=== PATIENT | female | born 1955 | race American Indian/Alaskan Native ===

== ENCOUNTER 2020-05-26 13:14 | Inpatient (IN) | payer OTHER ==
--- NOTE | 2020-05-26 13:32 | Event Note ---
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 Further treatment and workup at subsequent clinical providers discretion. Patient/guardian urged not to elope from the ED as their condition may be serious if not clinically assessed and managed. Initial orders include: labs, cxr, ekg oxygen saturation 90% no significant wheezing on exam, has good air movement placed on oxygen charge nurse janina notified pt needs room hari
--- NOTE | 2020-05-26 14:33 | XRay Report ---
CHEST PA AND LATERAL VIEWS INDICATION: SOB. COMPARISON: None. FINDINGS: Support devices: None. Heart: Within normal limits. Lungs/Pleura: Opacities over both right and left lower hemithoraces may be due to at least in part to x-ray beam attenuation secondary to patient body habitus. No pleural abnormality. IMPRESSION: 1. Bibasilar opacities may be artifact related to x-ray beam attenuation given patient body habitus. Mild bibasilar atelectasis or lower airways disease could conceivably have this appearance. Signer Name: Rosendo Espinal MD Signed: 05/26/2020 2:29 PM Workstation Name: [id number]
[2020-05-26 14:58] LABS: Basophils % (Auto) 0.3 % (0.0-1.8); Hematocrit 39.6 % (30.3-42.9); Hemoglobin 13.5 gm/dl (10.1-14.3); Lymphocytes # (Auto) 0.7 K/mm3 (1.2-5.4); Lymphocytes % (Auto) 10.9 % (13.4-35.0); Mean Corpuscular HGB Conc 34 % (30-34); Mean Corpuscular Volume 92 fl (79-97); Monocytes # (Auto) 0.5 K/mm3 (0.0-0.8); Monocytes % (Auto) 7.4 % (0.0-7.3); Platelet Count 166 K/mm3 (140-440); Red Blood Count 4.33 M/mm3 (3.65-5.03); Red Cell Distribution Width 13.6 % (13.2-15.2)
[2020-05-26] MEDS ORDERED: dexAMETHasone 4 MG/ML VIAL IV ONE (15:01)
[2020-05-26 15:02] LABS: Alanine Aminotransferase 11 units/L (7-56); Albumin 3.9 g/dL (3.9-5); BUN/Creatinine Ratio 10; Blood Urea Nitrogen 9 mg/dL (7-17); Calcium 8.8 mg/dL (8.4-10.2); Hemolysis Index 6
[2020-05-26] MEDS ORDERED: ACETAMINOPHEN 325 MG TAB PO STA (15:14)
[2020-05-26] MEDS ORDERED: LACTATED RINGERS 1,000 ML IV ONE (15:14)
--- NOTE | 2020-05-26 15:15 | Emergency Department Report ---
ED General Adult HPI - General Chief complaint: Dyspnea/Respdistress Stated complaint: ISSUES BREATHING PUI?: Yes Time Seen by Provider: 05/26/20 13:30 Source: patient, RN notes reviewed Mode of arrival: Wheelchair Limitations: Physical Limitation - History of Present Illness Initial comments: The patient was evaluated in the emergency department for symptoms described in the history of present illness. He/she was evaluated in the context of the global COVID-19 pandemic, which necessitated consideration that the patient aditya ht be at risk for infection with the virus that causes COVID-19. Institutional protocols and algorithms that pertain to the evaluation of patients at risk for COVID-19 are in a state of rapid change based on information released by regulatory bodies including the CDC and federal and state organizations. These policies and algorithms were followed during the patient's care in the emergency department. Please note that these policies, procedures and recommendations changed on a rapid basis. During the history and physical, I have not complete personal protective equipment. Patient is a 65-year-old female. She is not known to myself previously. She has a history of hypertension and obesity. The patient is currently visiting from [facility]. She recently drove here in a truck. She presents to the ER with chest tightness, cough, shortness of breath, malaise and fatigue. Her symptoms have been present for 1 week. She denies loss of taste and smell. Positive muscle aches. No leg pain or leg swelling. No hematemesis or bright red blood per rectum. Does not have a local primary care doctor. Typically resides in [facility]. She reports that every couple years, "I get double pneumonia." She has not been around any Covid positive individuals that she is aware of. Reports allergy/swelling/anaphylaxis to penicillin. Has not received penicillin for a few years. -: Gradual, days(s) Consistency: constant Improves with: rest Worsens with: movement - Related Data Home Medications Medication Instructions Recorded Confirmed Last Taken Lisinopril/Hydrochlorothiazide 1 tab PO QDAY 05/26/20 05/26/20 Unknown [Zestoretic 20-25 mg] hydrOXYzine HCL [Atarax] 25 mg PO QHS 05/26/20 05/26/20 Unknown Allergies Allergy/AdvReac Type Severity Reaction Status Date / Time aspirin Allergy Unknown Verified 05/26/20 15:54 Penicillins Allergy Unknown Verified 05/26/20 15:54 shellfish derived Allergy Unknown Verified 05/26/20 15:54 ED Review of Systems ROS: Stated complaint: ISSUES BREATHING Other details as noted in HPI Constitutional: malaise, weakness. denies: fever Eyes: denies: eye discharge ENT: congestion Respiratory: shortness of breath, SOB with exertion, SOB at rest Cardiovascular: denies: syncope Gastrointestinal: denies: abdominal pain, nausea, vomiting, hematemesis, melena, hematochezia Genitourinary: denies: dysuria Musculoskeletal: myalgia Neurological: weakness Hematological/Lymphatic: denies: easy bleeding ED Past Medical Hx - Past Medical History Hx Hypertension: Yes Hx Asthma: Yes - Surgical History Past Surgical History?: No - Medications Home Medications: Home Medications Medication Instructions Recorded Confirmed Last Taken Type Lisinopril/Hydrochlorothiazide 1 tab PO QDAY 05/26/20 05/26/20 Unknown History [Zestoretic 20-25 mg] hydrOXYzine HCL [Atarax] 25 mg PO QHS 05/26/20 05/26/20 Unknown History ED Physical Exam - General Limitations: Physical Limitation General appearance: alert, anxious, obese - Head Head exam: Present: atraumatic, normocephalic - Eye Eye exam: Present: normal appearance, EOMI. Absent: nystagmus - ENT ENT exam: Present: normal exam, normal orophraynx, mucous membranes moist, normal external ear exam - Neck Neck exam: Present: normal inspection, full ROM. Absent: tenderness, meningismus - Respiratory Respiratory exam: Present: other (Pulmonary auscultation not performed secondary to lack of disposable stethoscope). Absent: stridor - Cardiovascular Cardiovascular Exam: Present: other (Cardiac auscultation not performed secondary to lack of disposable stethoscope) - GI/Abdominal GI/Abdominal exam: Present: soft. Absent: distended, tenderness, guarding, rebound, rigid, pulsatile mass - Extremities Exam Extremities exam: Present: normal inspection, full ROM, pedal edema (1+ edema in the bilateral lower extremities), other (2+ pulses noted in the bilateral upper and lower extremities. There is no palpable cord. negative Homans sign. Muscular compartments are soft. The pelvis is stable.). Absent: calf tenderness - Back Exam Back exam: Present: normal inspection, full ROM. Absent: tenderness, CVA tenderness (R), CVA tenderness (L), paraspinal tenderness, vertebral tenderness - Neurological Exam Neurological exam: Present: alert, other (No facial droop. Tongue midline. Extraocular movements intact bilaterally. Facial sensation intact to light touch in V1, V2, V3 distribution bilaterally. 5 and a 5 strength in 4 extremities. Sensation intact to light touch in 4 extremities.). Absent: motor sensory deficit - Psychiatric Psychiatric exam: Present: anxious - Skin Skin exam: Present: warm, dry, intact, normal color. Absent: rash ED Course Vital Signs 05/26/20 05/26/20 05/26/20 13:26 14:06 14:30 Temperature 99.0 F Pulse Rate 123 H 105 H Respiratory 22 22 Rate Blood Pressure 129/74 140/65 O2 Sat by Pulse 92 97 97 Oximetry 05/26/20 15:46 Temperature Pulse Rate 109 H Respiratory 25 H Rate Blood Pressure 146/77 O2 Sat by Pulse 97 Oximetry - Reevaluation(s) Reevaluation #1: 05/26/20 19:00 CT scan of the chest is negative for pulmonary embolism. Multi lobar pneumonia is suspected, suspicious for Covid. ED Medical Decision Making - Lab Data Result diagrams: 05/26/20 14:13 05/26/20 15:17 Vital Signs 05/26/20 13:26 Temperature 99.0 F Pulse Rate 123 H Respiratory 22 Rate Blood Pressure 129/74 O2 Sat by Pulse 92 Oximetry Lab Results 05/26/20 05/26/20 05/26/20 Range/Units 14:13 14:13 14:13 WBC 6.3 (4.5-11.0) K/mm3 RBC 4.33 (3.65-5.03) M/mm3 Hgb 13.5 (10.1-14.3) gm/dl Hct 39.6 (30.3-42.9) % MCV 92 (79-97) fl MCH 31 (28-32) pg MCHC 34 (30-34) % RDW 13.6 (13.2-15.2) % Plt Count 166 (140-440) K/mm3 Lymph % (Auto) 10.9 L (13.4-35.0) % [place] % (Auto) 7.4 H (0.0-7.3) % Eos % (Auto) 0.0 (0.0-4.3) % Baso % (Auto) 0.3 (0.0-1.8) % Lymph # (Auto) 0.7 L (1.2-5.4) K/mm3 [place] # (Auto) 0.5 (0.0-0.8) K/mm3 Eos # (Auto) 0.0 (0.0-0.4) K/mm3 Baso # (Auto) 0.0 (0.0-0.1) K/mm3 Seg Neutrophils % 81.4 H (40.0-70.0) % Seg Neutrophils # 5.2 (1.8-7.7) K/mm3 D-Dimer 319.79 H (0-234) ng/mlDDU Sodium 141 (137-145) mmol/L Potassium 4.0 (3.6-5.0) mmol/L Chloride 99.6 (98-107) mmol/L Carbon Dioxide 33 H (22-30) mmol/L Anion Gap 12 mmol/L BUN 9 (7-17) mg/dL Creatinine 0.9 (0.6-1.2) mg/dL Estimated GFR > 60 ml/min BUN/Creatinine Ratio 10 % Glucose 126 H (65-100) mg/dL Calcium 8.8 (8.4-10.2) mg/dL Total Bilirubin 0.50 (0.1-1.2) mg/dL AST 26 (5-40) units/L ALT 11 (7-56) units/L Alkaline Phosphatase 63 (35-129) units/L Troponin T < 0.010 (0.00-0.029) ng/mL NT-Pro-B Natriuret Pep 53.54 (0-900) pg/mL Total Protein 7.3 (6.3-8.2) g/dL Albumin 3.9 (3.9-5) g/dL Albumin/Globulin Ratio 1.1 % - EKG Data -: EKG Interpreted by Il EKG shows normal: sinus rhythm Rate: tachycardia - EKG Data When compared to previous EKG there are: previous EKG unavailable 05/26/20 15:51 EKG interpreted at 15: 30 Sinus rhythm, tachycardia, 109 bpm. Left axis deviation, left anterior fascicular block, QTC is prolonged. Borderline left ventricular hypertrophy. This is an abnormal EKG. This is not a STEMI. There is no prior for comparison. - Radiology Data Radiology results: report reviewed, image reviewed CHEST PA AND LATERAL VIEWS INDICATION: SOB. COMPARISON: None. FINDINGS: Support devices: None. Heart: Within normal limits. Lungs/Pleura: Opacities over both right and left lower hemithoraces may be due to at least in part to x-ray beam attenuation secondary to patient body habitus. No pleural abnormality. IMPRESSION: 1. Bibasilar opacities may be artifact related to x-ray beam attenuation given patient body habitus. Mild bibasilar atelectasis or lower airways disease could conceivably have this appearance. Signer Name: Rosendo Espinal MD Signed: 05/26/2020 1:29 PM - Medical Decision Making Differential diagnosis, including but not limited to: Pneumonia, COVID-19, pulmonary embolism Assessment and plan: 65-year-old female, obese, with hypoxia, tachycardia, left axis deviation, left anterior fascicular block, recently had a 4-day trip from [place] to here, presenting with probable COVID-19. Patient require supplemental oxygen, steroids, and empiric antibiotic therapy. X-ray of the chest reviewed and appreciated. Patient counseled on recommendations for hospitalization and admission. At this point in time, patient is amenable to admission and hospitalization. She has provided verbal consent to have her medical information discussed with her significant other. Given recent trip from [place], we will obtain CT scan of the chest. We will place courtesy consultation for infectious disease, and defer to inpatient team to follow this up. We will continue supplemental oxygen, initiate steroids, empiric Levaquin, given patient's intolerance/allergy to penicillins. Dr Marty Oscar to admit to [facility] Critical Care Time: Yes Critical care time in (mins) excluding proc time.: 35 Critical care attestation.: If time is entered above; I have spent that time in minutes in the direct care of this critically ill patient, excluding procedure time. ED Disposition Clinical Impression: Acute and chronic respiratory failure with hypoxia, Suspected 2019 novel coronavirus infection, Obesity Disposition: OP ADMIT IP TO THIS HOSP Is pt being admited?: Yes Does the pt Need Aspirin: No Condition: Serious
[2020-05-26 16:10] LABS: C-Reactive Protein 17.3 mg/dL (0.00-1.30)
--- NOTE | 2020-05-26 18:09 | Cat Scan Report ---
CTA CHEST WITH IV CONTRAST INDICATION: acute dyspnea. TECHNIQUE: Axial CT images were obtained through the chest after injection of 100 cc Omnipaque 350 IV contrast. 3 plane MIP reconstructions were produced. All CT scans at this location are performed using CT dose reduction for ALARA by means of automated exposure control. COMPARISON: None available. FINDINGS: Pulmonary Arteries: No pulmonary emboli. Lungs: There are patchy areas of groundglass opacity in both lungs. Trachea and Bronchi: No significant abnormality. Heart and Pericardium: No significant abnormality. Vasculature: No significant abnormality. Lymphatics: No lymphadenopathy. Additional Findings: None. Upper Abdomen: No acute findings. Skeletal Structures: No acute findings or aggressive bone lesions. IMPRESSION: 1. No CT evidence for pulmonary embolism. 2. Patchy peripheral groundglass opacities likely reflecting multifocal pneumonia. Viral pneumonia wo uld be a possibility for this appearance. Signer Name: Ortega Burns MD Signed: 05/26/2020 6:04 PM Workstation Name: [id number]
[2020-05-27] MEDS ORDERED: METOCLOPRAMIDE 10 MG/2 ML INJ IV PRN (00:49)
[2020-05-27] MEDS ORDERED: ONDANSETRON 4 MG/2 ML INJ IV PRN (00:49)
--- NOTE | 2020-05-27 00:54 | History and Physical Report ---
History of Present Illness Date of examination: 05/26/20 Date of admission: 05/26/20 15:54 Chief complaint: Cough and SOB for one week History of present illness: Patient is a 65-year-old female with history of hypertension and obesity currently visiting from [facility]. She recently drove here in a truck. She presents to the ER with chest tightness, cough, shortness of breath, malaise and fatigue. Her symptoms have been present for 1 week. She denies loss of taste and smell. Positive muscle aches. No leg pain or leg swelling. No hematemesis or bright red blood per rectum. Does not have a local primary care doctor. Typically resides in [facility]. She reports that every couple years, "I get double pneumonia." She has not been around any Covid positive individuals that she is aware of. - Past Medical History --Hypertension: Yes --Asthma: Yes - Surgical History Past Surgical History?: No --Family History Htn Social History No smoking/etoh - Medications Home Medications: Home Medications Medication Instructions Recorded Confirmed Last Taken Type Lisinopril/Hydrochlorothiazide 1 tab PO QDAY 05/26/20 05/26/20 Unknown History [Zestoretic 20-25 mg] hydrOXYzine HCL [Atarax] 25 mg PO QHS 05/26/20 05/26/20 Unknown History Review of Systems ROS: Stated complaint: ISSUES BREATHING Other details as noted in HPI Constitutional: malaise, weakness. denies: fever Eyes: denies: eye discharge ENT: congestion Respiratory: shortness of breath, SOB with exertion, SOB at rest Cardiovascular: denies: syncope Gastrointestinal: denies: abdominal pain, nausea, vomiting, hematemesis, melena, hematochezia Genitourinary: denies: dysuria Musculoskeletal: myalgia Neurological: weakness Hematological/Lymphatic: denies: easy bleeding Medications and Allergies Allergies Allergy/AdvReac Type Severity Reaction Status Date / Time aspirin Allergy Unknown Verified 05/26/20 15:54 Penicillins Allergy Unknown Verified 05/26/20 15:54 shellfish derived Allergy Unknown Verified 05/26/20 15:54 Home Medications Medication Instructions Recorded Confirmed Last Taken Type Lisinopril/Hydrochlorothiazide 1 tab PO QDAY 05/26/20 05/26/20 Unknown History [Zestoretic 20-25 mg] hydrOXYzine HCL [Atarax] 25 mg PO QHS 05/26/20 05/26/20 Unknown History Exam - Constitutional Vitals: Temp Pulse Resp BP Pulse Ox 97.5 F L 93 H 20 125/70 94 05/26/20 22:53 05/26/20 22:53 05/26/20 22:53 05/26/20 22:53 05/26/20 22:53 General appearance: Present: mild distress, well-nourished - EENT Eyes: Present: PERRL ENT: hearing intact, clear oral mucosa - Neck Neck: Present: supple, normal ROM - Respiratory Respiratory effort: normal Respiratory: bilateral: CTA, rhonchi (Scattered rhonchi) - Cardiovascular Heart rate: 78 Rhythm: regular Heart Sounds: Present: S1 & S2. Absent: rub, click - Extremities Extremities: no ischemia, pulses intact, pulses symmetrical, No edema Peripheral Pulses: within normal limits - Abdominal General gastrointestinal: Present: soft, non-tender, non-distended, normal bowel sounds Female genitourinary: Present: normal - Integumentary Integumentary: Present: clear, warm, dry - Musculoskeletal Musculoskeletal: gait normal, strength equal bilaterally - Psychiatric Psychiatric: appropriate mood/affect, intact judgment & insight - Neurologic Neurologic: CNII-XII intact, moves all extremities - Allied Health Allied health notes reviewed: nursing, case management HEART Score - HEART Score History: Slightly suspicious Age: 45-65 Risk factors: 1-2 risk factors Troponin: Troponin T < 0.010 ng/mL (0.00-0.029) 05/26/20 14:13 Troponin: < normal limit - Critical Actions Critical Actions: 0-3 pts:0.9-1.7%risk of adverse cardiac event.Candidate for discharge Results - Labs CBC & Chem 7: 05/27/20 03:45 05/27/20 03:45 Labs: Laboratory Last Values WBC 6.3 K/mm3 (4.5-11.0) 05/26/20 14:13 RBC 4.33 M/mm3 (3.65-5.03) 05/26/20 14:13 Hgb 13.5 gm/dl (10.1-14.3) 05/26/20 14:13 Hct 39.6 % (30.3-42.9) 05/26/20 14:13 MCV 92 fl (79-97) 05/26/20 14:13 MCH 31 pg (28-32) 05/26/20 14:13 MCHC 34 % (30-34) 05/26/20 14:13 RDW 13.6 % (13.2-15.2) 05/26/20 14:13 Plt Count 166 K/mm3 (140-440) 05/26/20 14:13 Lymph % (Auto) 10.9 % (13.4-35.0) L 05/26/20 14:13 [place] % (Auto) 7.4 % (0.0-7.3) H 05/26/20 14:13 Eos % (Auto) 0.0 % (0.0-4.3) 05/26/20 14:13 Baso % (Auto) 0.3 % (0.0-1.8) 05/26/20 14:13 Lymph # (Auto) 0.7 K/mm3 (1.2-5.4) L 05/26/20 14:13 [place] # (Auto) 0.5 K/mm3 (0.0-0.8) 05/26/20 14:13 Eos # (Auto) 0.0 K/mm3 (0.0-0.4) 05/26/20 14:13 Baso # (Auto) 0.0 K/mm3 (0.0-0.1) 05/26/20 14:13 Seg Neutrophils % 81.4 % (40.0-70.0) H 05/26/20 14:13 Seg Neutrophils # 5.2 K/mm3 (1.8-7.7) 05/26/20 14:13 D-Dimer 319.79 ng/mlDDU (0-234) H 05/26/20 14:13 Sodium 141 mmol/L (137-145) 05/26/20 14:13 Potassium 4.0 mmol/L (3.6-5.0) 05/26/20 14:13 Chloride 99.6 mmol/L (98-107) 05/26/20 14:13 Carbon Dioxide 33 mmol/L (22-30) H 05/26/20 14:13 Anion Gap 12 mmol/L 05/26/20 14:13 BUN 9 mg/dL (7-17) 05/26/20 14:13 Creatinine 0.9 mg/dL (0.6-1.2) 05/26/20 14:13 Estimated GFR > 60 ml/min 05/26/20 14:13 BUN/Creatinine Ratio 10 % 05/26/20 14:13 Glucose 122 mg/dL (65-100) H 05/26/20 15:17 Lactic Acid 2.80 mmol/L (0.7-2.0) H* 05/26/20 23:46 Calcium 8.8 mg/dL (8.4-10.2) 05/26/20 14:13 Ferritin 709.6 ng/mL (10.0-200.0) H 05/26/20 15:17 Total Bilirubin 0.50 mg/dL (0.1-1.2) 05/26/20 14:13 AST 26 units/L (5-40) 05/26/20 14:13 ALT 11 units/L (7-56) 05/26/20 14:13 Alkaline Phosphatase 63 units/L (35-129) 05/26/20 14:13 Lactate Dehydrogenase 502 units/L (91-180) H 05/26/20 15:17 Troponin T < 0.010 ng/mL (0.00-0.029) 05/26/20 14:13 C-Reactive Protein 17.30 mg/dL (0.00-1.30) H 05/26/20 15:17 NT-Pro-B Natriuret Pep 53.54 pg/mL (0-900) 05/26/20 14:13 Total Protein 7.3 g/dL (6.3-8.2) 05/26/20 14:13 Albumin 3.9 g/dL (3.9-5) 05/26/20 14:13 Albumin/Globulin Ratio 1.1 % 05/26/20 14:13 Microbiology: Microbiology 05/26/20 15:20 Peripheral/Venous Blood Culture - Preliminary Culture in Progress 05/26/20 15:17 Peripheral/Venous Blood Culture - Preliminary Culture in Progress - Imaging and Cardiology EKG: report reviewed (Sinus tach 109/min no acute changes) Chest x-ray: report reviewed (Bilateral opacities) Assessment and Plan Advance Directives: Yes (Full code) VTE prophylaxis?: Chemical Plan of care discussed with patient/family: Yes - Patient Problems (1) Sepsis Current Visit: Yes Status: Acute Plan to address problem: Elevated Lactic acid tachypnea and Tachycardia (2) Acute and chronic respiratory failure with hypoxia Current Visit: Yes Status: Acute Plan to address problem: Hypoxic initially Needs O2 supplementation (3) Bilateral pneumonia Current Visit: Yes Status: Acute Plan to address problem: Treat as CAP for now IV Ceftriaxone and IV Zithromax initiated IV Decadron for possible covid (4) Suspected 2019 novel coronavirus infection Current Visit: Yes Status: Acute Plan to address problem: Mederos pcr requested (5) Obesity Current Visit: Yes Status: Chronic Qualifiers: Body mass index: BMI 45.0-49.9 Plan to address problem: Needs f//u with bariatric surgery and Diet and exercise Primary team to senior counsel (6) DVT prophylaxis Current Visit: Yes Status: Acute Plan to address problem: On Lovenox and GI prophylaxis
[2020-05-27] MEDS ORDERED: dexAMETHasone 4 MG/ML VIAL IV SCH (01:00)
[2020-05-27] MEDS ORDERED: AZITHROMYCIN/NS 500 MG/250 ML 500 MG/250 ML BAG IV SCH ×2 (01:00→22:00)
[2020-05-27 04:14] LABS: Basophils % (Auto) 0.2 % (0.0-1.8); Eosinophils % (Auto) 0.3 % (0.0-4.3); Hematocrit 39.6 % (30.3-42.9); Hemoglobin 13.8 gm/dl (10.1-14.3); Lymphocytes # (Auto) 0.5 K/mm3 (1.2-5.4); Lymphocytes % (Auto) 8.2 % (13.4-35.0); Mean Corpuscular HGB Conc 35 % (30-34); Mean Corpuscular Volume 90 fl (79-97); Monocytes # (Auto) 0.2 K/mm3 (0.0-0.8); Monocytes % (Auto) 3.2 % (0.0-7.3); Red Blood Count 4.38 M/mm3 (3.65-5.03); Red Cell Distribution Width 13.5 % (13.2-15.2)
[2020-05-27 04:19] LABS: Platelet Count 192 K/mm3 (140-440)
[2020-05-27] MEDS: SODIUM CHLORIDE 0.9% 1000 ML 1,000 ML IV SCH (05:04)
[2020-05-27 05:38] LABS: Alanine Aminotransferase 12 units/L (7-56); Albumin 4.3 g/dL (3.9-5); BUN/Creatinine Ratio 11; Blood Urea Nitrogen 9 mg/dL (7-17); Calcium 8.6 mg/dL (8.4-10.2); Hemolysis Index 50
--- NOTE | 2020-05-27 08:42 | Progress Note ---
Assessment and Plan Assessment and plan: (1) Sepsis Current Visit: Yes Status: Acute Plan to address problem: Elevated Lactic acid tachypnea and Tachycardia (2) Acute and chronic respiratory failure with hypoxia Current Visit: Yes Status: Acute Plan to address problem: Hypoxic initially Needs O2 supplementation (3) Bilateral pneumonia Current Visit: Yes Status: Acute Plan to address problem: Treat as CAP for now IV Ceftriaxone and IV Zithromax initiated IV Decadron for possible covid (4) Suspected 2019 novel coronavirus infection Current Visit: Yes Status: Acute Plan to address problem: Mederos pcr requested (5) Obesity Current Visit: Yes Status: Chronic Qualifiers: Body mass index: BMI 45.0-49.9 Plan to address problem: Needs f//u with bariatric surgery and Diet and exercise Primary team to mortgage counselor (6) DVT prophylaxis Current Visit: Yes Status: Acute Plan to address problem: On Lovenox and GI prophylaxis 05/27/2020 -CTA chest significant for bilateral groundglass opacity suspected of Covid pneumonia. Negative for PE. Patient was started empirically on antibiotics. ID consulted. Started on Decadron. Covid test is pending. Patient was hypoxic initially. -Patient is on 4 L of oxygen. History Interval history: Patient was seen and evaluated this morning Patient was on 4 L of oxygen Complaints of shortness of breath Hospitalist Physical - Physical exam Narrative exam: Not in cardiopulmonary distress. The patient is obese Vital signs as documented. Head exam is unremarkable. No scleral icterus . Neck is without jugular venous distension, thyromegaly, or carotid bruits. Lungs are clear to auscultation. Cardiac exam reveals regular rate and Rhythm. Abdominal exam reveals normal bowel sounds, nontender, no organomegaly. Extremities are nonedematous and both femoral and pedal pulses are normal. 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 No focal weakness. - Constitutional Vitals: Temp Pulse Resp BP Pulse Ox 98.6 F 72 22 120/73 89 05/27/20 05:30 05/27/20 05:30 05/27/20 05:30 05/27/20 05:30 05/27/20 05:30 General appearance: Present: mild distress, well-nourished HEART Score - HEART Score Age: 45-65 Risk factors: 1-2 risk factors Troponin: Troponin T < 0.010 ng/mL (0.00-0.029) 05/26/20 14:13 Troponin: < normal limit - Critical Actions Critical Actions: 0-3 pts:0.9-1.7%risk of adverse cardiac event.Candidate for discharge Results - Labs CBC & Chem 7: 05/27/20 03:45 05/27/20 03:45 Labs: Laboratory Last Values WBC 6.5 K/mm3 (4.5-11.0) 05/27/20 03:45 RBC 4.38 M/mm3 (3.65-5.03) 05/27/20 03:45 Hgb 13.8 gm/dl (10.1-14.3) 05/27/20 03:45 Hct 39.6 % (30.3-42.9) 05/27/20 03:45 MCV 90 fl (79-97) 05/27/20 03:45 MCH 31 pg (28-32) 05/27/20 03:45 MCHC 35 % (30-34) H 05/27/20 03:45 RDW 13.5 % (13.2-15.2) 05/27/20 03:45 Plt Count 192 K/mm3 (140-440) 05/27/20 03:45 Lymph % (Auto) 8.2 % (13.4-35.0) L 05/27/20 03:45 [place] % (Auto) 3.2 % (0.0-7.3) 05/27/20 03:45 Eos % (Auto) 0.3 % (0.0-4.3) 05/27/20 03:45 Baso % (Auto) 0.2 % (0.0-1.8) 05/27/20 03:45 Lymph # (Auto) 0.5 K/mm3 (1.2-5.4) L 05/27/20 03:45 [place] # (Auto) 0.2 K/mm3 (0.0-0.8) 05/27/20 03:45 Eos # (Auto) 0.0 K/mm3 (0.0-0.4) 05/27/20 03:45 Baso # (Auto) 0.0 K/mm3 (0.0-0.1) 05/27/20 03:45 Seg Neutrophils % 88.1 % (40.0-70.0) H 05/27/20 03:45 Seg Neutrophils # 5.7 K/mm3 (1.8-7.7) 05/27/20 03:45 D-Dimer 319.79 ng/mlDDU (0-234) H 05/26/20 14:13 Sodium 143 mmol/L (137-145) 05/27/20 03:45 Potassium 4.8 mmol/L (3.6-5.0) 05/27/20 03:45 Chloride 100.5 mmol/L (98-107) 05/27/20 03:45 Carbon Dioxide 27 mmol/L (22-30) 05/27/20 03:45 Anion Gap 20 mmol/L 05/27/20 03:45 BUN 9 mg/dL (7-17) 05/27/20 03:45 Creatinine 0.8 mg/dL (0.6-1.2) 05/27/20 03:45 Estimated GFR > 60 ml/min 05/27/20 03:45 BUN/Creatinine Ratio 11 % 05/27/20 03:45 Glucose 134 mg/dL (65-100) H 05/27/20 03:45 Hemoglobin A1c 5.5 % (4-6) 05/27/20 03:45 Lactic Acid 2.80 mmol/L (0.7-2.0) H* 05/26/20 23:46 Calcium 8.6 mg/dL (8.4-10.2) 05/27/20 03:45 Ferritin 709.6 ng/mL (10.0-200.0) H 05/26/20 15:17 Total Bilirubin 0.50 mg/dL (0.1-1.2) 05/27/20 03:45 AST 29 units/L (5-40) 05/27/20 03:45 ALT 12 units/L (7-56) 05/27/20 03:45 Alkaline Phosphatase 72 units/L (35-129) 05/27/20 03:45 Lactate Dehydrogenase 502 units/L (91-180) H 05/26/20 15:17 Troponin T < 0.010 ng/mL (0.00-0.029) 05/26/20 14:13 C-Reactive Protein 17.30 mg/dL (0.00-1.30) H 05/26/20 15:17 NT-Pro-B Natriuret Pep 53.54 pg/mL (0-900) 05/26/20 14:13 Total Protein 6.9 g/dL (6.3-8.2) 05/27/20 03:45 Albumin 4.3 g/dL (3.9-5) 05/27/20 03:45 Albumin/Globulin Ratio 1.7 % 05/27/20 03:45 Microbiology: Microbiology 05/26/20 15:20 Peripheral/Venous Blood Culture - Preliminary Culture in Progress 05/26/20 15:17 Peripheral/Venous Blood Culture - Preliminary Culture in Progress Harris/IV: Voiding Method Toilet Active Medications - Current Medications Current Medications: Generic Name Dose Route Start Last Admin Trade Name Freq PRN Reason Stop Dose Admin Acetaminophen 650 mg 05/27/20 00:49 Acetaminophen 325 Mg Tab PO Q4H PRN Pain MILD(1-3)/Fever >100.5/MAHARAJ Dexamethasone 8 mg 05/27/20 01:00 05/27/20 01:11 Dexamethasone 4 Mg/Ml Vial IV 8 mg Q24HR LA Administration Enoxaparin Sodium 40 mg 05/27/20 22:00 Enoxaparin 40 Mg/0.4 Ml Inj SUB-Q QDAY@2200 LA Protocol Famotidine 20 mg 05/27/20 10:00 Famotidine 20 Mg Tab PO BID LA Hydrochlorothiazide 25 mg 05/27/20 10:00 Hydrochlorothiazide 25 Mg Tab PO QDAY LA Hydroxyzine HCl 25 mg 05/27/20 22:00 Hydroxyzine Hcl 25 Mg Tab PO QHS LA Ceftriaxone Sodium 2 gm in 100 mls @ 200 mls/hr 05/27/20 10:00 Rocephin/Ns 2 Gm/100 Ml IV Q24HR LA Protocol Azithromycin 500 mg in 250 mls @ 250 mls/hr 05/27/20 10:00 Zithromax/Ns IV Q24HR LA Sodium Chloride 1,000 mls @ 125 mls/hr 05/27/20 05:00 05/27/20 05:04 Nacl 0.9% 1000 Ml IV 125 mls/hr DIRECT LA Administration Lisinopril 20 mg 05/27/20 10:00 Lisinopril 20 Mg Tab PO QDAY LA Metoclopramide HCl 10 mg 05/27/20 00:49 Metoclopramide 10 Mg/2 Ml Inj IV Q6H PRN Nausea And Vomiting Morphine Sulfate 2 mg 05/27/20 00:49 Morphine 2 Mg/1 Ml Inj IV Q4H PRN Pain, Moderate (4-6) Ondansetron HCl 4 mg 05/27/20 00:49 Ondansetron 4 Mg/2 Ml Inj IV Q8H PRN Nausea And Vomiting Oxycodone/Acetaminophen 1 tab 05/27/20 00:49 Oxycodone /Acetaminophen 5-325mg Tab PO Q6H PRN Pain, Moderate (4-6) Sodium Chloride 10 ml 05/27/20 10:00 Sodium Chloride 0.9% 10 Ml Flush Syringe IV BID LA Sodium Chloride 10 ml 05/27/20 00:49 Sodium Chloride 0.9% 10 Ml Flush Syringe IV PRN PRN LINE FLUSH
[2020-05-27] MEDS ORDERED: NON-FORMULARY EACH (Lisinopril/Hydrochlorothiazide [Zestoretic 20-25 Mg] 1 EACH Tablet) PO SCH (10:00)
[2020-05-27] MEDS: hydroCHLOROthiazide 25 MG TAB PO SCH (10:19)
[2020-05-27] MEDS: LISINOPRIL 20 MG TAB PO SCH (10:19)
[2020-05-27] MEDS: FAMOTIDINE 20 MG TAB PO SCH ×2 (11:20→22:20)
[2020-05-27] MEDS: AZITHROMYCIN/NS 500 MG/250 ML 500 MG/250 ML BAG IV SCH (11:22)
[2020-05-27] MEDS: dexAMETHasone 4 MG/ML VIAL IV SCH (12:07)
--- NOTE | 2020-05-27 12:09 | Electrocardiograph Report ---
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
[2020-05-27] MEDS: cefTRIAXone/NS 2 GM/100 ML 2 GM/100 ML BAG IV SCH (12:23)
[2020-05-27] MEDS: MORPHINE 2 MG/1 ML INJ IV PRN ×2 (15:32→20:54)
[2020-05-27] MEDS: ALBUTEROL 2.5 MG/3 ML NEBU IH PRN (15:49)
[2020-05-27] MEDS ORDERED: REMDESIVIR 100 MG VIAL IV ONE (16:30)
[2020-05-27] MEDS ORDERED: REMDESIVIR 200 MG in SODIUM CHLORIDE 0.9% 250ML 250 ML IV ONE (16:30)
--- NOTE | 2020-05-27 17:40 | Consultation ---
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 Patient has not received a Covid vaccine. 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 She has not received influenza or pneumonia vaccine. On arrival, temperature 99, HR 123, RR 22, O2 sat 92, BP 129/74. O2 sat dropped to 89%. Currently on 4 L. Initial WBC 6.3. Hemoglobin 15.5. Platelets 166. D-dimer 319. CRP 17. LDH 502. Procalcitonin 0.2. Blood culture 05/26/2020 growing gram variable rods 1 out of 4. Chest x-ray with bibasilar opacities. CT chest shows no PE, patchy groundglass opacities. Review of Systems: positive in bold print General: fever, chills, malaise Cutaneous: rash, pruritus Head: headaches or injury Eyes: changes in vision, eye pain, double vision Ears: ear pain, ear discharge, ringing or hearing loss Nose: nose bleeding, stuffiness Mouth & throat: bleeding gums, horseness, no dental problems, or swollen glands Neck: no pain, node enlargement/lumps, tyroid enlargement or tenderness Respiratory: SOB, cough, RIBEIRO, wheezing, sputum, hemoptysis, pleuritic chest pain Cardiovascular: chest pain, leg edema, cyanosis, RIBEIRO, orthopnea Musculoskeletal: edema, deformities, pain Gastrointestinal: nausea, vomiting, hematemesis, diarrhea, constipation, melena, bright red blood in stools, fecal incontinence, jaundice Genitourinary/Reproductive: frequent urination, dysuria, hematuria, incontinence Neurogical: seizures, headaches, weakness, paresthesias, loss of speech or vision; memory loss, vertigo, tremors, numbness Psychiatric: stable mood; excessive anxiety, sadness or moodiness Medications and Allergies Allergies Allergy/AdvReac Type Severity Reaction Status Date / Time aspirin Allergy Unknown Verified 05/26/20 15:54 Penicillins Allergy Unknown Verified 05/26/20 15:54 shellfish derived Allergy Unknown Verified 05/26/20 15:54 Home Medications Medication Instructions Recorded Confirmed Last Taken Type Lisinopril/Hydrochlorothiazide 1 tab PO QDAY 05/26/20 05/26/20 Unknown History [Zestoretic 20-25 mg] hydrOXYzine HCL [Atarax] 25 mg PO QHS 05/26/20 05/26/20 Unknown History ALBUTEROL NEB's [Proventil 0.083% 2.5 mg IH Q4HR PRN 05/27/20 05/27/20 Unknown History NEBS] Active Meds: Active Medications Acetaminophen (Acetaminophen 325 Mg Tab) 650 mg PO Q4H PRN PRN Reason: Pain MILD(1-3)/Fever >100.5/MAHARAJ Albuterol (Albuterol 2.5 Mg/3 Ml Nebu) 2.5 mg IH Q4HRT PRN PRN Reason: Shortness Of Breath Last Admin: 05/27/20 15:49 Dose: 2.5 mg Documented by: Dexamethasone (Dexamethasone 4 Mg/Ml Vial) 8 mg IV Q24HR [facility] Stop: 06/04/20 10:01 Last Admin: 05/27/20 12:07 Dose: 8 mg Documented by: Enoxaparin Sodium (Enoxaparin 40 Mg/0.4 Ml Inj) 40 mg SUB-Q QDAY@2200 [facility]; Protocol Famotidine (Famotidine 20 Mg Tab) 20 mg PO BID [facility] Last Admin: 05/27/20 11:20 Dose: 20 mg Documented by: Hydrochlorothiazide (Hydrochlorothiazide 25 Mg Tab) 25 mg PO QDAY [facility] Last Admin: 05/27/20 10:19 Dose: 25 mg Documented by: Hydroxyzine HCl (Hydroxyzine Hcl 25 Mg Tab) 25 mg PO QHS [facility] Ceftriaxone Sodium (Rocephin/Ns 2 Gm/100 Ml) 2 gm in 100 mls @ 200 mls/hr IV Q24HR [facility]; Protocol Last Admin: 05/27/20 12:23 Dose: 200 mls/hr Documented by: Sodium Chloride (Nacl 0.9% 1000 Ml) 1,000 mls @ 125 mls/hr IV DIRECT LA Last Admin: 05/27/20 05:04 Dose: 125 mls/hr Documented by: Azithromycin (Zithromax/Ns) 500 mg in 250 mls @ 250 mls/hr IV Q24HR [facility] Stop: 05/31/20 10:59 Last Admin: 05/27/20 11:22 Dose: 250 mls/hr Documented by: REMDESIVIR 100 mg/ Sodium (Chloride) 250 mls @ 500 mls/hr IV Q24HR@2100 [facility] Stop: 05/31/20 21:29 Lisinopril (Lisinopril 20 Mg Tab) 20 mg PO QDAY [facility] Last Admin: 05/27/20 10:19 Dose: 20 mg Documented by: Metoclopramide HCl (Metoclopramide 10 Mg/2 Ml Inj) 10 mg IV Q6H PRN PRN Reason: Nausea And Vomiting Morphine Sulfate (Morphine 2 Mg/1 Ml Inj) 2 mg IV Q4H PRN PRN Reason: Pain, Moderate (4-6) Last Admin: 05/27/20 15:32 Dose: 2 mg Documented by: Ondansetron HCl (Ondansetron 4 Mg/2 Ml Inj) 4 mg IV Q8H PRN PRN Reason: Nausea And Vomiting Last Admin: 05/27/20 15:32 Dose: 4 mg Documented by: Oxycodone/Acetaminophen (Oxycodone /Acetaminophen 5-325mg Tab) 1 tab PO Q6H PRN PRN Reason: Pain, Moderate (4-6) Sodium Chloride (Sodium Chloride 0.9% 10 Ml Flush Syringe) 10 ml IV BID [facility] Last Admin: 05/27/20 10:21 Dose: 10 ml Documented by: Sodium Chloride (Sodium Chloride 0.9% 10 Ml Flush Syringe) 10 ml IV PRN PRN PRN Reason: LINE FLUSH Sodium Chloride (Sodium Chloride 0.9% 50 Ml Ivpb) 50 ml IV Q24HR@2100 [facility] Stop: 05/30/20 21:01 Physical Examination - Physical Exam Narrative exam: General appearance: Alert in NAD pleasant Eyes: anicteric sclerae, moist conjunctivae; no lid-lag; PERRLA HENT: Normocephalic, Atraumatic; normal external ears, nares open, oropharynx clear Neck: supple, tracheal midline, no JVD Lungs: francisco crackles/wheezings CV: RRR no murmur Abdomen: Soft, non-tender; no masses or hepatosplenomegaly Extremities: no edema, no cyanosis Skin: No rash. Psych: no agitated Neuro: alert and oriented x 3. Moving all extermities - Constitutional Vitals: Vital Signs Temp Pulse Resp BP Pulse Ox 98.6 F 89 22 127/72 92 05/27/20 05:30 05/27/20 13:07 05/27/20 05:30 05/27/20 13:07 05/27/20 13:07 Temperature -Last 24 Hours Temperature 98.6 F Temperature 97.5 F Results - Labs CBC & Chem 7: 05/27/20 03:45 05/27/20 03:45 Labs: Abnormal lab results 05/26/20 05/26/20 05/26/20 Range/Units 10:15 17:59 23:46 MCHC (30-34) % Lymph % (Auto) (13.4-35.0) % Lymph # (Auto) (1.2-5.4) K/mm3 Seg Neutrophils % (40.0-70.0) % Glucose (65-100) mg/dL Lactic Acid 2.40 H* 2.80 H* (0.7-2.0) mmol/L Coronavirus (PCR) Positive A (Negative) 05/27/20 05/27/20 Range/Units 03:45 03:45 MCHC 35 H (30-34) % Lymph % (Auto) 8.2 L (13.4-35.0) % Lymph # (Auto) 0.5 L (1.2-5.4) K/mm3 Seg Neutrophils % 88.1 H (40.0-70.0) % Glucose 134 H (65-100) mg/dL Lactic Acid (0.7-2.0) mmol/L Coronavirus (PCR) (Negative) Assessment and Plan Cultures: Blood culture 05/26/2020 growing gram variable rods 1 out of 4. 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 Procalcitonin 0.2. #Severe COVID pneumonia: Chest x-ray with bibasilar opacities. CT chest shows no PE, patchy groundglass opacities. Elevated markers. D-dimer 319. CRP 17. LDH 502. Ferritin 709. #Gram variable rods: 1 out of 4. likely contaminant, however will cover until MRSA is r/o #Acute hypoxemic respiratory failure: sats dropped to 89%, now on 4L #Morbid obesity: associated with worse outcomes Recommendations: -Continue Dexamethasone IV/PO daily for 10 days -Continue Remdesivir for 5 days (CrCl>30 mg/mL) -Monitor inflammatory markers - ferritin, Ddimer, CRP, LDH -Repeat procal -check UA -Monitor liver function test on Remdesivir -Continue anticoagulation per System Protocol -Prone positioning as possible -Continue ceftriaxone and azithromycin, given very high lactate -Add vancomycin -repeat blood cx tomorrow All laboratory, cultures and imaging were reviewed. Close monitoring high risk of decompensation Will follow Ryanne Ramires MD Infectious Diseases Yard Worker [facility] M [phone] O [phone]
[2020-05-27] MEDS ORDERED: VANCOMYCIN PHARMACY TO DOSE IV SCH (18:00)
[2020-05-27 18:01] LABS: Alanine Aminotransferase 12 units/L (7-56); Albumin 3.7 g/dL (3.9-5); BUN/Creatinine Ratio 18; Blood Urea Nitrogen 14 mg/dL (7-17); Calcium 8.7 mg/dL (8.4-10.2); Hemolysis Index 23
[2020-05-27] MEDS ORDERED: ALBUTEROL 8.5 GM MDI INHALATION IH PRN (19:42)
[2020-05-27] MEDS: hydrOXYzine HCL 25 MG TAB PO SCH (22:20)
[2020-05-27] MEDS: ENOXAPARIN 40 MG/0.4 ML INJ SUB-Q SCH (22:20)
[2020-05-27] MEDS: VANCOMYCIN 2,000 MG in SODIUM CHLORIDE 0.9% 500 ML 500 ML IV SCH (22:20)
[2020-05-27] MEDS: SODIUM CHLORIDE 0.9% 50 ML IVPB IV SCH (22:21)
[2020-05-28 07:05] LABS: Basophils % (Auto) 0.1 % (0.0-1.8); Hematocrit 38.1 % (30.3-42.9); Hemoglobin 13.1 gm/dl (10.1-14.3); Lymphocytes # (Auto) 0.5 K/mm3 (1.2-5.4); Lymphocytes % (Auto) 4.8 % (13.4-35.0); Mean Corpuscular HGB Conc 34 % (30-34); Mean Corpuscular Volume 91 fl (79-97); Monocytes # (Auto) 0.7 K/mm3 (0.0-0.8); Monocytes % (Auto) 7.3 % (0.0-7.3); Platelet Count 219 K/mm3 (140-440); Red Blood Count 4.17 M/mm3 (3.65-5.03); Red Cell Distribution Width 13.2 % (13.2-15.2)
--- NOTE | 2020-05-28 07:26 | Progress Note ---
Assessment and Plan Assessment and plan: (1) Sepsis Current Visit: Yes Status: Acute Plan to address problem: Elevated Lactic acid tachypnea and Tachycardia (2) Acute and chronic respiratory failure with hypoxia Current Visit: Yes Status: Acute Plan to address problem: Hypoxic initially Needs O2 supplementation (3) Bilateral pneumonia Current Visit: Yes Status: Acute Plan to address problem: Treat as CAP for now IV Ceftriaxone and IV Zithromax initiated IV Decadron for possible covid (4) Suspected 2019 novel coronavirus infection Current Visit: Yes Status: Acute Plan to address problem: Mederos pcr requested (5) Obesity Current Visit: Yes Status: Chronic Qualifiers: Body mass index: BMI 45.0-49.9 Plan to address problem: Needs f//u with bariatric surgery and Diet and exercise Primary team to child care counselor (6) DVT prophylaxis Current Visit: Yes Status: Acute Plan to address problem: On Lovenox and GI prophylaxis 05/27/2020 -CTA chest significant for bilateral groundglass opacity suspected of Covid pneumonia. Negative for PE. Patient was started empirically on antibiotics. ID consulted. Started on Decadron. Covid test is pending. Patient was hypoxic initially. -Patient is on 4 L of oxygen. 05/28/2020 -Acute hypoxic respiratory failure secondary to Covid infection, patient is on 5 L of oxygen. History of asthma -CTA showed lateral groundglass opacities -Patient is on IV Decadron and remdesivir -ID consult appreciated History Interval history: Patient was seen and evaluated this morning Patient was on 5 L of oxygen Complaints of shortness of breath, chest pain during coughing and epigastric Hospitalist Physical - Physical exam Narrative exam: Not in cardiopulmonary distress. The patient is obese Vital signs as documented. Head exam is unremarkable. No scleral icterus . Neck is without jugular venous distension, thyromegaly, or carotid bruits. Lungs are clear to auscultation. Cardiac exam reveals regular rate and Rhythm. Abdominal exam reveals normal bowel sounds, nontender, no organomegaly. Extremities are nonedematous and both femoral and pedal pulses are normal. 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 No focal weakness. - Constitutional Vitals: Temp Pulse Resp BP Pulse Ox 97.7 F 73 20 105/55 93 05/28/20 04:43 05/28/20 04:43 05/28/20 04:43 05/28/20 04:43 05/28/20 04:43 General appearance: Present: mild distress, well-nourished HEART Score - HEART Score Age: 45-65 Risk factors: 1-2 risk factors Troponin: Troponin T < 0.010 ng/mL (0.00-0.029) 05/26/20 14:13 Troponin: < normal limit - Critical Actions Critical Actions: 0-3 pts:0.9-1.7%risk of adverse cardiac event.Candidate for discharge Results - Labs CBC & Chem 7: 05/28/20 06:45 05/28/20 06:45 Labs: Laboratory Last Values WBC 10.3 K/mm3 (4.5-11.0) 05/28/20 06:45 RBC 4.17 M/mm3 (3.65-5.03) 05/28/20 06:45 Hgb 13.1 gm/dl (10.1-14.3) 05/28/20 06:45 Hct 38.1 % (30.3-42.9) 05/28/20 06:45 MCV 91 fl (79-97) 05/28/20 06:45 MCH 31 pg (28-32) 05/28/20 06:45 MCHC 34 % (30-34) 05/28/20 06:45 RDW 13.2 % (13.2-15.2) 05/28/20 06:45 Plt Count 219 K/mm3 (140-440) 05/28/20 06:45 Lymph % (Auto) 4.8 % (13.4-35.0) L 05/28/20 06:45 [place] % (Auto) 7.3 % (0.0-7.3) 05/28/20 06:45 Eos % (Auto) 0.0 % (0.0-4.3) 05/28/20 06:45 Baso % (Auto) 0.1 % (0.0-1.8) 05/28/20 06:45 Lymph # (Auto) 0.5 K/mm3 (1.2-5.4) L 05/28/20 06:45 [place] # (Auto) 0.7 K/mm3 (0.0-0.8) 05/28/20 06:45 Eos # (Auto) 0.0 K/mm3 (0.0-0.4) 05/28/20 06:45 Baso # (Auto) 0.0 K/mm3 (0.0-0.1) 05/28/20 06:45 Seg Neutrophils % 87.8 % (40.0-70.0) H 05/28/20 06:45 Seg Neutrophils # 9.0 K/mm3 (1.8-7.7) H 05/28/20 06:45 D-Dimer 319.79 ng/mlDDU (0-234) H 05/26/20 14:13 Sodium 138 mmol/L (137-145) 05/27/20 16:58 Potassium 4.2 mmol/L (3.6-5.0) 05/27/20 16:58 Chloride 99.6 mmol/L (98-107) 05/27/20 16:58 Carbon Dioxide 28 mmol/L (22-30) 05/27/20 16:58 Anion Gap 15 mmol/L 05/27/20 16:58 BUN 14 mg/dL (7-17) 05/27/20 16:58 Creatinine 0.8 mg/dL (0.6-1.2) 05/27/20 16:58 Estimated GFR > 60 ml/min 05/27/20 16:58 BUN/Creatinine Ratio 18 % 05/27/20 16:58 Glucose 157 mg/dL (65-100) H 05/27/20 16:58 Hemoglobin A1c 5.5 % (4-6) 05/27/20 03:45 Lactic Acid 1.00 mmol/L (0.7-2.0) 05/27/20 07:55 Calcium 8.7 mg/dL (8.4-10.2) 05/27/20 16:58 Ferritin 709.6 ng/mL (10.0-200.0) H 05/26/20 15:17 Total Bilirubin 0.50 mg/dL (0.1-1.2) 05/27/20 16:58 AST 27 units/L (5-40) 05/27/20 16:58 ALT 12 units/L (7-56) 05/27/20 16:58 Alkaline Phosphatase 61 units/L (35-129) 05/27/20 16:58 Lactate Dehydrogenase 502 units/L (91-180) H 05/26/20 15:17 Troponin T < 0.010 ng/mL (0.00-0.029) 05/26/20 14:13 C-Reactive Protein 17.30 mg/dL (0.00-1.30) H 05/26/20 15:17 NT-Pro-B Natriuret Pep 53.54 pg/mL (0-900) 05/26/20 14:13 Total Protein 6.5 g/dL (6.3-8.2) 05/27/20 16:58 Albumin 3.7 g/dL (3.9-5) L 05/27/20 16:58 Albumin/Globulin Ratio 1.3 % 05/27/20 16:58 Procalcitonin 0.21 ng/mL (<0.15) 05/26/20 15:17 Coronavirus (PCR) Positive (Negative) A 05/26/20 10:15 Microbiology: Microbiology 05/26/20 15:17 Peripheral/Venous Blood Culture - Preliminary NO GROWTH AFTER 24 HOURS 05/26/20 15:20 Peripheral/Venous Blood Culture - Preliminary Harris/IV: Voiding Method Toilet Active Medications - Current Medications Current Medications: Generic Name Dose Route Start Last Admin Trade Name Freq PRN Reason Stop Dose Admin Acetaminophen 650 mg 05/27/20 00:49 Acetaminophen 325 Mg Tab PO Q4H PRN Pain MILD(1-3)/Fever >100.5/MAHARAJ Albuterol 2.5 mg 05/27/20 15:16 05/27/20 15:49 Albuterol 2.5 Mg/3 Ml Nebu IH 2.5 mg Q4HRT PRN Administration Shortness Of Breath Albuterol 2 puff 05/27/20 19:42 Albuterol 8.5 Gm Mdi Inhalation IH Q6HRT PRN Shortness Of Breath Dexamethasone 8 mg 05/27/20 10:00 05/27/20 12:07 Dexamethasone 4 Mg/Ml Vial IV 06/04/20 10:01 8 mg Q24HR LA Administration Enoxaparin Sodium 40 mg 05/27/20 22:00 05/27/20 22:20 Enoxaparin 40 Mg/0.4 Ml Inj SUB-Q 40 mg QDAY@2200 LA Administration Protocol Famotidine 20 mg 05/27/20 10:00 05/27/20 22:20 Famotidine 20 Mg Tab PO 20 mg BID LA Administration Hydrochlorothiazide 25 mg 04/07/21 10:00 05/27/20 10:19 Hydrochlorothiazide 25 Mg Tab PO 25 mg QDAY LA Administration Hydroxyzine HCl 25 mg 05/27/20 22:00 05/27/20 22:20 Hydroxyzine Hcl 25 Mg Tab PO 25 mg QHS LA Administration Ceftriaxone Sodium 2 gm in 100 mls @ 200 mls/hr 05/27/20 10:00 05/27/20 12:23 Rocephin/Ns 2 Gm/100 Ml IV 200 mls/hr Q24HR LA Administration Protocol Sodium Chloride 1,000 mls @ 125 mls/hr 05/27/20 05:00 05/27/20 05:04 Nacl 0.9% 1000 Ml IV 125 mls/hr DIRECT LA Administration Azithromycin 500 mg in 250 mls @ 250 mls/hr 05/27/20 10:00 05/27/20 11:22 Zithromax/Ns IV 05/31/20 10:59 250 mls/hr Q24HR LA Administration REMDESIVIR 100 mg/ Sodium 250 mls @ 500 mls/hr 05/28/20 21:00 Chloride IV 05/31/20 21:29 Q24HR@2100 LA Vancomycin HCl 2,000 mg/ 540 mls @ 250 mls/hr 05/27/20 20:00 05/27/20 22:20 Sodium Chloride IV 250 mls/hr Q12H LA Administration Lisinopril 20 mg 05/27/20 10:00 05/27/20 10:19 Lisinopril 20 Mg Tab PO 20 mg QDAY LA Administration Metoclopramide HCl 10 mg 05/27/20 00:49 Metoclopramide 10 Mg/2 Ml Inj IV Q6H PRN Nausea And Vomiting Morphine Sulfate 2 mg 05/27/20 00:49 05/27/20 20:54 Morphine 2 Mg/1 Ml Inj IV 2 mg Q4H PRN Administration Pain, Moderate (4-6) Ondansetron HCl 4 mg 05/27/20 00:49 05/27/20 15:32 Ondansetron 4 Mg/2 Ml Inj IV 4 mg Q8H PRN Administration Nausea And Vomiting Oxycodone/Acetaminophen 1 tab 05/27/20 00:49 Oxycodone /Acetaminophen 5-325mg Tab PO Q6H PRN Pain, Moderate (4-6) Sodium Chloride 10 ml 05/27/20 10:00 05/27/20 22:21 Sodium Chloride 0.9% 10 Ml Flush Syringe IV 10 ml BID LA Administration Sodium Chloride 10 ml 05/27/20 00:49 Sodium Chloride 0.9% 10 Ml Flush Syringe IV PRN PRN LINE FLUSH Sodium Chloride 50 ml 05/27/20 16:30 05/27/20 22:21 Sodium Chloride 0.9% 50 Ml Ivpb IV 05/30/20 21:01 50 ml Q24HR@2100 LA Administration
[2020-05-28 07:28] LABS: Alanine Aminotransferase 14 units/L (7-56); Albumin 3.5 g/dL (3.9-5); BUN/Creatinine Ratio 16; Blood Urea Nitrogen 14 mg/dL (7-17); Calcium 8.7 mg/dL (8.4-10.2); Hemolysis Index 14
[2020-05-28] MEDS: FAMOTIDINE 20 MG TAB PO SCH ×2 (09:57→21:18)
[2020-05-28] MEDS: cefTRIAXone/NS 2 GM/100 ML 2 GM/100 ML BAG IV SCH (09:57)
[2020-05-28] MEDS: dexAMETHasone 4 MG/ML VIAL IV SCH (09:58)
[2020-05-28] MEDS: LISINOPRIL 20 MG TAB PO SCH (10:06)
[2020-05-28] MEDS: VANCOMYCIN 2,000 MG in SODIUM CHLORIDE 0.9% 500 ML 500 ML IV SCH (10:07)
[2020-05-28] MEDS: hydroCHLOROthiazide 25 MG TAB PO SCH (10:10)
[2020-05-28] MEDS: AZITHROMYCIN/NS 500 MG/250 ML 500 MG/250 ML BAG IV SCH (11:00)
[2020-05-28] MEDS: VANCOMYCIN 1,500 MG in SODIUM CHLORIDE 0.9% 500 ML 500 ML IV SCH ×2 (12:00→21:17)
--- NOTE | 2020-05-28 13:03 | Progress Note ---
Assessment and Plan Cultures: Blood culture 05/26/2020 growing gram variable rods 1 out of 4. 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 Procalcitonin 0.2. #Severe COVID pneumonia: Chest x-ray with bibasilar opacities. CT chest shows no PE, patchy groundglass opacities. Elevated markers. D-dimer 319. CRP 17. LDH 502. Ferritin 709. #Gram variable rods: 1 out of 4. likely contaminant, however will cover until MRSA is r/o #Acute hypoxemic respiratory failure: sats dropped to 89%, now on 4L #Morbid obesity: associated with worse outcomes Recommendations: -Continue Dexamethasone IV/PO daily for 10 days -Continue Remdesivir for 5 days (CrCl>30 mg/mL) D2 of 5 -Monitor inflammatory markers - ferritin, Ddimer, CRP, LDH -Repeat procal -check UA pending -Monitor liver function test on Remdesivir -Continue anticoagulation per System Protocol -Prone positioning as possible -Continue ceftriaxone and azithromycin, given very high lactate -Add vancomycin -repeat blood cx today Close monitoring high risk of decompensation Will follow Ryanne Ramires MD Infectious Diseases [facility], [place], [facility] M [phone] O [phone] Subjective Date of service: 05/28/20 Principal diagnosis: COVID Interval history: Feels weak, no fever, on 4L NC, one loose stool this am Objective - Exam Narrative Exam: Physical exam deferred to minimize COVID-19 transmission during pandemic. - Constitutional Vitals: Vital Signs Temp Pulse Resp BP Pulse Ox 97.7 F 72 20 108/54 96 05/28/20 04:43 05/28/20 10:54 05/28/20 04:43 05/28/20 10:06 05/28/20 10:54 Temperature -Last 24 Hours Temperature 97.7 F Temperature 98.5 F - Labs CBC & Chem 7: 05/28/20 06:45 05/28/20 06:45 Labs: Abnormal lab results 05/26/20 05/27/20 05/28/20 Range/Units 10:15 16:58 06:45 Lymph % (Auto) 4.8 L (13.4-35.0) % Lymph # (Auto) 0.5 L (1.2-5.4) K/mm3 Seg Neutrophils % 87.8 H (40.0-70.0) % Seg Neutrophils # 9.0 H (1.8-7.7) K/mm3 Glucose 157 H (65-100) mg/dL Albumin 3.7 L (3.9-5) g/dL Coronavirus (PCR) Positive A (Negative) 05/28/20 Range/Units 06:45 Lymph % (Auto) (13.4-35.0) % Lymph # (Auto) (1.2-5.4) K/mm3 Seg Neutrophils % (40.0-70.0) % Seg Neutrophils # (1.8-7.7) K/mm3 Glucose 152 H (65-100) mg/dL Albumin 3.5 L (3.9-5) g/dL Coronavirus (PCR) (Negative)
[2020-05-28 15:01] LABS: Bilirubin,Urine NEG (Negative); Blood,Urine NEG (Negative); Color,Urine Yellow (Yellow); Mucus,Urine FEW /HPF; Protein,Urine <15 mg/dL mg/dL (Negative)
[2020-05-28] MEDS: guaiFENesin/CODEINE 100-10MG ORAL LIQD 5 ML PO PRN ×2 (16:00→21:18)
[2020-05-28] MEDS: oxyCODONE /ACETAMINOPHEN 5-325MG TAB PO PRN (16:01)
[2020-05-28] MEDS: ENOXAPARIN 40 MG/0.4 ML INJ SUB-Q SCH (21:18)
[2020-05-28] MEDS: hydrOXYzine HCL 25 MG TAB PO SCH (21:18)
[2020-05-28] MEDS: REMDESIVIR 100 MG in SODIUM CHLORIDE 0.9% 250ML 250 ML IV SCH (21:18)
[2020-05-28] MEDS: SODIUM CHLORIDE 0.9% 50 ML IVPB IV SCH (21:19)
--- NOTE | 2020-05-29 08:30 | Progress Note ---
Assessment and Plan Assessment and plan: (1) Sepsis Current Visit: Yes Status: Acute Plan to address problem: Elevated Lactic acid tachypnea and Tachycardia (2) Acute and chronic respiratory failure with hypoxia Current Visit: Yes Status: Acute Plan to address problem: Hypoxic initially Needs O2 supplementation (3) Bilateral pneumonia Current Visit: Yes Status: Acute Plan to address problem: Treat as CAP for now IV Ceftriaxone and IV Zithromax initiated IV Decadron for possible covid (4) Suspected 2019 novel coronavirus infection Current Visit: Yes Status: Acute Plan to address problem: Mederos pcr requested (5) Obesity Current Visit: Yes Status: Chronic Qualifiers: Body mass index: BMI 45.0-49.9 Plan to address problem: Needs f//u with bariatric surgery and Diet and exercise Primary team to adult school counselor (6) DVT prophylaxis Current Visit: Yes Status: Acute Plan to address problem: On Lovenox and GI prophylaxis 05/27/2020 -CTA chest significant for bilateral groundglass opacity suspected of Covid pneumonia. Negative for PE. Patient was started empirically on antibiotics. ID consulted. Started on Decadron. Covid test is pending. Patient was hypoxic initially. -Patient is on 4 L of oxygen. 05/28/2020 -Acute hypoxic respiratory failure secondary to Covid infection, patient is on 5 L of oxygen. History of asthma -CTA showed lateral groundglass opacities -Patient is on IV Decadron and remdesivir -ID consult appreciated 05/29/20 -Acute hypoxic respiratory failure secondary to Covid infection, patient is on 5 L of oxygen. History of asthma -CTA showed lateral groundglass opacities -Patient is on IV Decadron and remdesivir -ID consult appreciated; patient is on ceftriaxone and vancomycin -Lactic acid is still high History Interval history: Patient was seen and evaluated this morning Patient was on 5 L of oxygen Patient is complaining shortness of breath Hospitalist Physical - Physical exam Narrative exam: Not in cardiopulmonary distress. The patient is obese Vital signs as documented. Head exam is unremarkable. No scleral icterus . Neck is without jugular venous distension, thyromegaly, or carotid bruits. Lungs are clear to auscultation. Cardiac exam reveals regular rate and Rhythm. Abdominal exam reveals normal bowel sounds, nontender, no organomegaly. Extremities are nonedematous and both femoral and pedal pulses are normal. PSYCHOLOGY TECH: Alert and oriented 3. No focal weakness. - Constitutional Vitals: Temp Pulse Resp BP Pulse Ox 97.9 F 65 22 133/72 93 05/29/20 05:05 05/29/20 05:05 05/29/20 05:05 05/29/20 05:05 05/29/20 05:05 General appearance: Present: mild distress, well-nourished HEART Score - HEART Score Age: 45-65 Risk factors: 1-2 risk factors Troponin: Troponin T < 0.010 ng/mL (0.00-0.029) 05/26/20 14:13 Troponin: < normal limit - Critical Actions Critical Actions: 0-3 pts:0.9-1.7%risk of adverse cardiac event.Candidate for discharge Results - Labs CBC & Chem 7: 05/28/20 06:45 05/28/20 06:45 Labs: Laboratory Last Values WBC 10.3 K/mm3 (4.5-11.0) 05/28/20 06:45 RBC 4.17 M/mm3 (3.65-5.03) 05/28/20 06:45 Hgb 13.1 gm/dl (10.1-14.3) 05/28/20 06:45 Hct 38.1 % (30.3-42.9) 05/28/20 06:45 MCV 91 fl (79-97) 05/28/20 06:45 MCH 31 pg (28-32) 05/28/20 06:45 MCHC 34 % (30-34) 05/28/20 06:45 RDW 13.2 % (13.2-15.2) 05/28/20 06:45 Plt Count 219 K/mm3 (140-440) 05/28/20 06:45 Lymph % (Auto) 4.8 % (13.4-35.0) L 05/28/20 06:45 [place] % (Auto) 7.3 % (0.0-7.3) 05/28/20 06:45 Eos % (Auto) 0.0 % (0.0-4.3) 05/28/20 06:45 Baso % (Auto) 0.1 % (0.0-1.8) 05/28/20 06:45 Lymph # (Auto) 0.5 K/mm3 (1.2-5.4) L 05/28/20 06:45 [place] # (Auto) 0.7 K/mm3 (0.0-0.8) 05/28/20 06:45 Eos # (Auto) 0.0 K/mm3 (0.0-0.4) 05/28/20 06:45 Baso # (Auto) 0.0 K/mm3 (0.0-0.1) 05/28/20 06:45 Seg Neutrophils % 87.8 % (40.0-70.0) H 05/28/20 06:45 Seg Neutrophils # 9.0 K/mm3 (1.8-7.7) H 05/28/20 06:45 D-Dimer 377.36 ng/mlDDU (0-234) H 05/28/20 16:41 Sodium 140 mmol/L (137-145) 05/28/20 06:45 Potassium 4.2 mmol/L (3.6-5.0) 05/28/20 06:45 Chloride 101.7 mmol/L (98-107) 05/28/20 06:45 Carbon Dioxide 30 mmol/L (22-30) 05/28/20 06:45 Anion Gap 13 mmol/L 05/28/20 06:45 BUN 14 mg/dL (7-17) 05/28/20 06:45 Creatinine 0.9 mg/dL (0.6-1.2) 05/28/20 06:45 Estimated GFR > 60 ml/min 05/28/20 06:45 BUN/Creatinine Ratio 16 % 05/28/20 06:45 Glucose 152 mg/dL (65-100) H 05/28/20 06:45 Hemoglobin A1c 5.5 % (4-6) 05/27/20 03:45 Lactic Acid 1.00 mmol/L (0.7-2.0) 05/27/20 07:55 Calcium 8.7 mg/dL (8.4-10.2) 05/28/20 06:45 Ferritin 980.2 ng/mL (10.0-200.0) H 05/28/20 16:41 Total Bilirubin 0.40 mg/dL (0.1-1.2) 05/28/20 06:45 AST 29 units/L (5-40) 05/28/20 06:45 ALT 14 units/L (7-56) 05/28/20 06:45 Alkaline Phosphatase 55 units/L (35-129) 05/28/20 06:45 Lactate Dehydrogenase 431 units/L (91-180) H 05/28/20 06:45 Troponin T < 0.010 ng/mL (0.00-0.029) 05/26/20 14:13 C-Reactive Protein 7.80 mg/dL (0.00-1.30) H 05/28/20 06:45 NT-Pro-B Natriuret Pep 53.54 pg/mL (0-900) 05/26/20 14:13 Total Protein 6.8 g/dL (6.3-8.2) 05/28/20 06:45 Albumin 3.5 g/dL (3.9-5) L 05/28/20 06:45 Albumin/Globulin Ratio 1.1 % 05/28/20 06:45 Procalcitonin 0.21 ng/mL (<0.15) 05/26/20 15:17 Urine Color Yellow (Yellow) 05/28/20 14:25 Urine Turbidity Clear (Clear) 05/28/20 14:25 Urine pH 6.0 (5.0-7.0) 05/28/20 14:25 Ur Specific [place] 1.016 (1.003-1.030) 05/28/20 14:25 Urine Protein <15 mg/dl mg/dL (Negative) 05/28/20 14:25 Urine Glucose (UA) Neg mg/dL (Negative) 05/28/20 14:25 Urine Ketones Neg mg/dL (Negative) 05/28/20 14:25 Urine Blood Neg (Negative) 05/28/20 14:25 Urine Nitrite Neg (Negative) 05/28/20 14:25 Urine Bilirubin Neg (Negative) 05/28/20 14:25 Urine Urobilinogen 4.0 mg/dL (<2.0) 05/28/20 14:25 Ur Leukocyte Esterase Neg (Negative) 05/28/20 14:25 Urine WBC (Auto) 1.0 /HPF (0.0-6.0) 05/28/20 14:25 Urine RBC (Auto) 1.0 /HPF (0.0-6.0) 05/28/20 14:25 U Epithel Cells (Auto) 1.0 /HPF (0-13.0) 05/28/20 14:25 Urine Mucus Few /HPF 05/28/20 14:25 Coronavirus (PCR) Positive (Negative) A 05/26/20 10:15 Microbiology: Microbiology 05/26/20 15:17 Peripheral/Venous Blood Culture - Preliminary NO GROWTH AFTER 48 HOURS 05/26/20 15:20 Peripheral/Venous Blood Culture - Preliminary Harris/IV: Voiding Method Toilet Active Medications - Current Medications Current Medications: Generic Name Dose Route Start Last Admin Trade Name Freq PRN Reason Stop Dose Admin Acetaminophen 650 mg 05/27/20 00:49 Acetaminophen 325 Mg Tab PO Q4H PRN Pain MILD(1-3)/Fever >100.5/MAHARAJ Albuterol 2.5 mg 05/27/20 15:16 05/27/20 15:49 Albuterol 2.5 Mg/3 Ml Nebu IH 2.5 mg Q4HRT PRN Administration Shortness Of Breath Albuterol 2 puff 05/27/20 19:42 Albuterol 8.5 Gm Mdi Inhalation IH Q6HRT PRN Shortness Of Breath Dexamethasone 8 mg 05/27/20 10:00 05/28/20 09:58 Dexamethasone 4 Mg/Ml Vial IV 06/04/20 10:01 8 mg Q24HR LA Administration Enoxaparin Sodium 40 mg 05/27/20 22:00 05/28/20 21:18 Enoxaparin 40 Mg/0.4 Ml Inj SUB-Q 40 mg QDAY@2200 LA Administration Protocol Famotidine 20 mg 05/27/20 10:00 05/28/20 21:18 Famotidine 20 Mg Tab PO 20 mg BID LA Administration Hydrochlorothiazide 25 mg 05/27/20 10:00 05/28/20 10:10 Hydrochlorothiazide 25 Mg Tab PO Not Given QDAY LA Hydroxyzine HCl 25 mg 05/27/20 22:00 05/28/20 21:18 Hydroxyzine Hcl 25 Mg Tab PO 25 mg QHS LA Administration Ceftriaxone Sodium 2 gm in 100 mls @ 200 mls/hr 05/27/20 10:00 05/28/20 09:57 Rocephin/Ns 2 Gm/100 Ml IV 200 mls/hr Q24HR LA Administration Protocol Sodium Chloride 1,000 mls @ 125 mls/hr 05/27/20 05:00 05/27/20 05:04 Nacl 0.9% 1000 Ml IV 125 mls/hr DIRECT LA Administration Azithromycin 500 mg in 250 mls @ 250 mls/hr 05/27/20 10:00 05/28/20 11:00 Zithromax/Ns IV 05/31/20 10:59 250 mls/hr Q24HR LA Administration REMDESIVIR 100 mg/ Sodium 250 mls @ 500 mls/hr 05/28/20 21:00 05/28/20 21:18 Chloride IV 05/31/20 21:29 500 mls/hr Q24HR@2100 LA Administration Vancomycin HCl 1,500 mg/ 530 mls @ 333.333 mls/hr 05/28/20 10:00 05/28/20 21:17 Sodium Chloride IV 333.333 mls/hr Q12HR LA Administration Lisinopril 20 mg 05/27/20 10:00 05/28/20 10:06 Lisinopril 20 Mg Tab PO Not Given QDAY [facility] Metoclopramide HCl 10 mg 05/27/20 00:49 Metoclopramide 10 Mg/2 Ml Inj IV Q6H PRN Nausea And Vomiting Morphine Sulfate 2 mg 05/27/20 00:49 05/27/20 20:54 Morphine 2 Mg/1 Ml Inj IV 2 mg Q4H PRN Administration Pain, Moderate (4-6) Ondansetron HCl 4 mg 05/27/20 00:49 05/27/20 15:32 Ondansetron 4 Mg/2 Ml Inj IV 4 mg Q8H PRN Administration Nausea And Vomiting Oxycodone/Acetaminophen 1 tab 05/27/20 00:49 05/28/20 16:01 Oxycodone /Acetaminophen 5-325mg Tab PO 1 tab Q6H PRN Administration Pain, Moderate (4-6) Pseudoephedrine/Acetam/Chlorphenir 10 ml 05/28/20 08:37 05/28/20 21:18 Guaifenesin/Codeine 100-10mg Oral Liqd 5 Ml PO 10 ml Q4H PRN Administration Cough Sodium Chloride 10 ml 05/27/20 10:00 05/28/20 21:18 Sodium Chloride 0.9% 10 Ml Flush Syringe IV 10 ml BID LA Administration Sodium Chloride 10 ml 05/27/20 00:49 Sodium Chloride 0.9% 10 Ml Flush Syringe IV PRN PRN LINE FLUSH Sodium Chloride 50 ml 05/27/20 16:30 05/28/20 21:19 Sodium Chloride 0.9% 50 Ml Ivpb IV 05/30/20 21:01 50 ml Q24HR@2100 LA Administration
[2020-05-29] MEDS: FAMOTIDINE 20 MG TAB PO SCH ×2 (10:12→22:54)
[2020-05-29] MEDS: cefTRIAXone/NS 2 GM/100 ML 2 GM/100 ML BAG IV SCH (10:12)
[2020-05-29] MEDS: dexAMETHasone 4 MG/ML VIAL IV SCH (10:12)
[2020-05-29] MEDS: AZITHROMYCIN/NS 500 MG/250 ML 500 MG/250 ML BAG IV SCH (10:12)
[2020-05-29] MEDS: hydroCHLOROthiazide 25 MG TAB PO SCH (10:14)
[2020-05-29] MEDS: LISINOPRIL 20 MG TAB PO SCH (10:14)
[2020-05-29] MEDS: VANCOMYCIN 1,500 MG in SODIUM CHLORIDE 0.9% 500 ML 500 ML IV SCH ×2 (10:28→22:51)
[2020-05-29] MEDS: guaiFENesin/CODEINE 100-10MG ORAL LIQD 5 ML PO PRN ×2 (11:59→19:55)
--- NOTE | 2020-05-29 12:34 | Progress Note ---
Assessment and Plan Cultures: Blood culture 05/26/2020 growing gram variable rods 1 out of 4. 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 Procalcitonin 0.2--> 0.4. Urinalysis negative. #Severe COVID pneumonia: Chest x-ray with bibasilar opacities. CT chest shows no PE, patchy groundglass opacities. Elevated markers. D-dimer 319. CRP 17. LDH 502. Ferritin 709. Markers uptrending. #Gram variable rods: 1 out of 4. likely contaminant, however will cover until MRSA is r/o #Acute hypoxemic respiratory failure: sats dropped to 89%, worsening now on 5 L #Morbid obesity: associated with worse outcomes Recommendations: -Continue Dexamethasone IV/PO daily for 10 days -Continue Remdesivir for 5 days (CrCl>30 mg/mL) D3 of 5 -Monitor inflammatory markers - ferritin, Ddimer, CRP, LDH -Monitor liver function test on Remdesivir -Continue anticoagulation per System Protocol -Prone positioning as possible -Continue ceftriaxone x 5 days and azithromycin x 3 days, given very high lactate and elevated procal -Continue vancomycin -repeat blood cx today -ordered Close monitoring high risk of decompensation Will follow Ryanne Ramires MD Infectious Diseases [employer] [facility] M [phone] O [phone] Subjective Principal diagnosis: COVID Objective - Constitutional Vitals: Vital Signs Temp Pulse Resp BP Pulse Ox 97.9 F 65 22 118/60 93 05/29/20 05:05 05/29/20 05:05 05/29/20 05:05 05/29/20 10:14 05/29/20 05:05 Temperature -Last 24 Hours Temperature 97.9 F Temperature 97.8 F Temperature 98.5 F - Labs CBC & Chem 7: 05/28/20 06:45 05/28/20 06:45 Labs: Abnormal lab results 04/08/21 04/08/21 04/08/21 Range/Units 06:45 06:45 16:41 D-Dimer 377.36 H (0-234) ng/mlDDU Ferritin (10.0-200.0) ng/mL Lactate Dehydrogenase 431 H (91-180) units/L C-Reactive Protein 7.80 H (0.00-1.30) mg/dL 05/28/20 Range/Units 16:41 D-Dimer (0-234) ng/mlDDU Ferritin 980.2 H (10.0-200.0) ng/mL Lactate Dehydrogenase (91-180) units/L C-Reactive Protein (0.00-1.30) mg/dL
[2020-05-29] MEDS: SODIUM CHLORIDE 0.9% 1000 ML 1,000 ML IV SCH (18:29)
--- NOTE | 2020-05-29 18:30 | Vascular Lab Report ---
DUPLEX DOPPLER LOWER EXTREMITY VEINS, BILATERAL INDICATION / CLINICAL INFORMATION: Shortness of breath, COVID pneumonia, sepsis. TECHNIQUE: Duplex doppler imaging was performed through the veins of both lower extremities using ayse ous compression and other maneuvers. COMPARISON: None. FINDINGS: Right Common Femoral vein: Negative. Right Femoral vein: Negative. Right Popliteal vein: Negative. Right Calf veins: Negative. Left Common Femoral vein: Negative. Left Femoral vein: Negative. Left Popliteal vein: Negative. Left Calf veins: Negative. Additional findings: None. IMPRESSION: 1. No sonographic evidence for DVT in either lower extremity. Signer Name: Indira Coyne MD Signed: 05/29/2020 6:26 PM Workstation Name: [id number]
[2020-05-29] MEDS: oxyCODONE /ACETAMINOPHEN 5-325MG TAB PO PRN (18:33)
[2020-05-29] MEDS: MORPHINE 2 MG/1 ML INJ IV PRN (19:55)
[2020-05-29] MEDS: SODIUM CHLORIDE 0.9% 50 ML IVPB IV SCH (21:00)
[2020-05-29 21:10] LABS: Alanine Aminotransferase 18 units/L (7-56); Albumin 3.4 g/dL (3.9-5); BUN/Creatinine Ratio 20; Blood Urea Nitrogen 16 mg/dL (7-17); Hemolysis Index 9
[2020-05-29] MEDS: REMDESIVIR 100 MG in SODIUM CHLORIDE 0.9% 250ML 250 ML IV SCH (21:12)
[2020-05-29] MEDS: ENOXAPARIN 40 MG/0.4 ML INJ SUB-Q SCH (21:13)
[2020-05-29] MEDS: hydrOXYzine HCL 25 MG TAB PO SCH (21:14)
[2020-05-30] MEDS: SODIUM CHLORIDE 0.9% 50 ML IVPB IV SCH ×2 (05:21→22:13)
[2020-05-30 07:14] LABS: Alanine Aminotransferase 17 units/L (7-56); Albumin 3.5 g/dL (3.9-5); Blood Urea Nitrogen 14 mg/dL (7-17); Calcium 7.9 mg/dL (8.4-10.2); Hemolysis Index 23
[2020-05-30 07:37] LABS: BUN/Creatinine Ratio 20
--- NOTE | 2020-05-30 07:45 | Progress Note ---
Assessment and Plan Assessment and plan: (1) Sepsis Current Visit: Yes Status: Acute Plan to address problem: Elevated Lactic acid tachypnea and Tachycardia (2) Acute and chronic respiratory failure with hypoxia Current Visit: Yes Status: Acute Plan to address problem: Hypoxic initially Needs O2 supplementation (3) Bilateral pneumonia Current Visit: Yes Status: Acute Plan to address problem: Treat as CAP for now IV Ceftriaxone and IV Zithromax initiated IV Decadron for possible covid (4) Suspected 2019 novel coronavirus infection Current Visit: Yes Status: Acute Plan to address problem: Mederos pcr requested (5) Obesity Current Visit: Yes Status: Chronic Qualifiers: Body mass index: BMI 45.0-49.9 Plan to address problem: Needs f//u with bariatric surgery and Diet and exercise Primary team to addictions counselor assistant (6) DVT prophylaxis Current Visit: Yes Status: Acute Plan to address problem: On Lovenox and GI prophylaxis 05/27/2020 -CTA chest significant for bilateral groundglass opacity suspected of Covid pneumonia. Negative for PE. Patient was started empirically on antibiotics. ID consulted. Started on Decadron. Covid test is pending. Patient was hypoxic initially. -Patient is on 4 L of oxygen. 05/28/2020 -Acute hypoxic respiratory failure secondary to Covid infection, patient is on 5 L of oxygen. History of asthma -CTA showed lateral groundglass opacities -Patient is on IV Decadron and remdesivir -ID consult appreciated 05/29/20 -Acute hypoxic respiratory failure secondary to Covid infection, patient is on 5 L of oxygen. History of asthma -CTA showed lateral groundglass opacities -Patient is on IV Decadron and remdesivir -ID consult appreciated; patient is on ceftriaxone and vancomycin -Lactic acid is still high 05/30/2020 -Continue with remdesivir and Decadron -Changes still on 4 L of oxygen -CTA chest and Doppler ultrasound of the lower extremities was done and negative for DVT. CTA is significant for multifocal pneumonia due to Covid History Interval history: Patient was seen and evaluated this morning Patient was on 4 L of oxygen Patient is complaining loss of appetite Hospitalist Physical - Physical exam Narrative exam: Not in cardiopulmonary distress. The patient is obese Vital signs as documented. Head exam is unremarkable. No scleral icterus . Neck is without jugular venous distension, thyromegaly, or carotid bruits. Lungs are clear to auscultation. Cardiac exam reveals regular rate and Rhythm. Abdominal exam reveals normal bowel sounds, nontender, no organomegaly. Extremities are nonedematous and both femoral and pedal pulses are normal. DOCUMENT SPECIALIST: Alert and oriented 3. No focal weakness. - Constitutional Vitals: Temp Pulse Resp BP Pulse Ox 97.7 F 54 L 26 H 132/61 96 05/29/20 21:39 05/29/20 21:35 05/29/20 16:50 05/29/20 21:34 05/29/20 21:35 General appearance: Present: mild distress, well-nourished HEART Score - HEART Score Age: 45-65 Risk factors: 1-2 risk factors Troponin: Troponin T < 0.010 ng/mL (0.00-0.029) 05/26/20 14:13 Troponin: < normal limit - Critical Actions Critical Actions: 0-3 pts:0.9-1.7%risk of adverse cardiac event.Candidate for discharge Results - Labs CBC & Chem 7: 05/28/20 06:45 05/30/20 06:30 Labs: Laboratory Last Values WBC 10.3 K/mm3 (4.5-11.0) 05/28/20 06:45 RBC 4.17 M/mm3 (3.65-5.03) 05/28/20 06:45 Hgb 13.1 gm/dl (10.1-14.3) 05/28/20 06:45 Hct 38.1 % (30.3-42.9) 05/28/20 06:45 MCV 91 fl (79-97) 05/28/20 06:45 MCH 31 pg (28-32) 05/28/20 06:45 MCHC 34 % (30-34) 05/28/20 06:45 RDW 13.2 % (13.2-15.2) 05/28/20 06:45 Plt Count 219 K/mm3 (140-440) 05/28/20 06:45 Lymph % (Auto) 4.8 % (13.4-35.0) L 05/28/20 06:45 [place] % (Auto) 7.3 % (0.0-7.3) 05/28/20 06:45 Eos % (Auto) 0.0 % (0.0-4.3) 05/28/20 06:45 Baso % (Auto) 0.1 % (0.0-1.8) 05/28/20 06:45 Lymph # (Auto) 0.5 K/mm3 (1.2-5.4) L 05/28/20 06:45 [place] # (Auto) 0.7 K/mm3 (0.0-0.8) 05/28/20 06:45 Eos # (Auto) 0.0 K/mm3 (0.0-0.4) 05/28/20 06:45 Baso # (Auto) 0.0 K/mm3 (0.0-0.1) 05/28/20 06:45 Seg Neutrophils % 87.8 % (40.0-70.0) H 05/28/20 06:45 Seg Neutrophils # 9.0 K/mm3 (1.8-7.7) H 05/28/20 06:45 D-Dimer 377.36 ng/mlDDU (0-234) H 05/28/20 16:41 Sodium 143 mmol/L (137-145) 05/30/20 06:30 Potassium 4.0 mmol/L (3.6-5.0) 05/30/20 06:30 Chloride 104.7 mmol/L (98-107) 05/30/20 06:30 Carbon Dioxide 31 mmol/L (22-30) H 05/30/20 06:30 Anion Gap 11 mmol/L 05/30/20 06:30 BUN 14 mg/dL (7-17) 05/30/20 06:30 Creatinine 0.7 mg/dL (0.6-1.2) 05/30/20 06:30 Estimated GFR > 60 ml/min 05/30/20 06:30 BUN/Creatinine Ratio 20 % 05/30/20 06:30 Glucose 110 mg/dL (65-100) H 05/30/20 06:30 Hemoglobin A1c 5.5 % (4-6) 05/27/20 03:45 Lactic Acid 1.00 mmol/L (0.7-2.0) 05/27/20 07:55 Calcium 7.9 mg/dL (8.4-10.2) L 05/30/20 06:30 Ferritin 980.2 ng/mL (10.0-200.0) H 05/28/20 16:41 Total Bilirubin 0.30 mg/dL (0.1-1.2) 05/30/20 06:30 AST 22 units/L (5-40) 05/30/20 06:30 ALT 17 units/L (7-56) 05/30/20 06:30 Alkaline Phosphatase 54 units/L (35-129) 05/30/20 06:30 Lactate Dehydrogenase 431 units/L (91-180) H 05/28/20 06:45 Troponin T < 0.010 ng/mL (0.00-0.029) 05/26/20 14:13 C-Reactive Protein 7.80 mg/dL (0.00-1.30) H 05/28/20 06:45 NT-Pro-B Natriuret Pep 53.54 pg/mL (0-900) 05/26/20 14:13 Total Protein 6.1 g/dL (6.3-8.2) L 05/30/20 06:30 Albumin 3.5 g/dL (3.9-5) L 05/30/20 06:30 Albumin/Globulin Ratio 1.3 % 05/30/20 06:30 Procalcitonin 0.45 ng/mL (<0.15) 05/28/20 16:41 Urine Color Yellow (Yellow) 05/28/20 14:25 Urine Turbidity Clear (Clear) 05/28/20 14:25 Urine pH 6.0 (5.0-7.0) 05/28/20 14:25 Ur Specific [place] 1.016 (1.003-1.030) 05/28/20 14:25 Urine Protein <15 mg/dl mg/dL (Negative) 05/28/20 14:25 Urine Glucose (UA) Neg mg/dL (Negative) 05/28/20 14:25 Urine Ketones Neg mg/dL (Negative) 05/28/20 14:25 Urine Blood Neg (Negative) 05/28/20 14:25 Urine Nitrite Neg (Negative) 05/28/20 14:25 Urine Bilirubin Neg (Negative) 05/28/20 14:25 Urine Urobilinogen 4.0 mg/dL (<2.0) 05/28/20 14:25 Ur Leukocyte Esterase Neg (Negative) 05/28/20 14:25 Urine WBC (Auto) 1.0 /HPF (0.0-6.0) 05/28/20 14:25 Urine RBC (Auto) 1.0 /HPF (0.0-6.0) 05/28/20 14:25 U Epithel Cells (Auto) 1.0 /HPF (0-13.0) 05/28/20 14:25 Urine Mucus Few /HPF 05/28/20 14:25 Vancomycin Trough 23.4 ug/mL (5.0-20.0) H 05/29/20 20:36 Coronavirus (PCR) Positive (Negative) A 05/26/20 10:15 Microbiology: Microbiology 05/29/20 15:01 Peripheral/Venous Blood Culture - Preliminary Culture in Progress 05/29/20 15:01 Peripheral/Venous Blood Culture - Preliminary Culture in Progress 05/26/20 15:17 Peripheral/Venous Blood Culture - Preliminary NO GROWTH AFTER 72 HOURS Harris/IV: Voiding Method Toilet Active Medications - Current Medications Current Medications: Generic Name Dose Route Start Last Admin Trade Name Freq PRN Reason Stop Dose Admin Acetaminophen 650 mg 05/27/20 00:49 Acetaminophen 325 Mg Tab PO Q4H PRN Pain MILD(1-3)/Fever >100.5/MAHARAJ Albuterol 2.5 mg 05/27/20 15:16 05/27/20 15:49 Albuterol 2.5 Mg/3 Ml Nebu IH 2.5 mg Q4HRT PRN Administration Shortness Of Breath Albuterol 2 puff 05/27/20 19:42 Albuterol 8.5 Gm Mdi Inhalation IH Q6HRT PRN Shortness Of Breath Dexamethasone 8 mg 05/27/20 10:00 05/29/20 10:12 Dexamethasone 4 Mg/Ml Vial IV 06/04/20 10:01 8 mg Q24HR LA Administration Enoxaparin Sodium 40 mg 05/27/20 22:00 05/29/20 21:13 Enoxaparin 40 Mg/0.4 Ml Inj SUB-Q 40 mg QDAY@2200 LA Administration Protocol Famotidine 20 mg 05/27/20 10:00 05/29/20 22:54 Famotidine 20 Mg Tab PO 20 mg BID LA Administration Hydrochlorothiazide 25 mg 05/27/20 10:00 05/29/20 10:14 Hydrochlorothiazide 25 Mg Tab PO 25 mg QDAY LA Administration Hydroxyzine HCl 25 mg 05/27/20 22:00 05/29/20 21:14 Hydroxyzine Hcl 25 Mg Tab PO 25 mg QHS LA Administration Ceftriaxone Sodium 2 gm in 100 mls @ 200 mls/hr 05/27/20 10:00 05/29/20 10:12 Rocephin/Ns 2 Gm/100 Ml IV 200 mls/hr Q24HR LA Administration Protocol Sodium Chloride 1,000 mls @ 125 mls/hr 05/27/20 05:00 05/29/20 18:29 Nacl 0.9% 1000 Ml IV 125 mls/hr DIRECT LA Administration REMDESIVIR 100 mg/ Sodium 250 mls @ 500 mls/hr 05/28/20 21:00 05/29/20 21:12 Chloride IV 05/31/20 21:29 500 mls/hr Q24HR@2100 LA Administration Vancomycin HCl 1,500 mg/ 530 mls @ 333.333 mls/hr 05/28/20 10:00 05/29/20 22:51 Sodium Chloride IV Not Given Q12HR LA Lisinopril 20 mg 05/27/20 10:00 05/29/20 10:14 Lisinopril 20 Mg Tab PO 20 mg QDAY LA Administration Metoclopramide HCl 10 mg 05/27/20 00:49 Metoclopramide 10 Mg/2 Ml Inj IV Q6H PRN Nausea And Vomiting Morphine Sulfate 2 mg 05/27/20 00:49 05/29/20 19:55 Morphine 2 Mg/1 Ml Inj IV 2 mg Q4H PRN Administration Pain, Moderate (4-6) Ondansetron HCl 4 mg 05/27/20 00:49 05/27/20 15:32 Ondansetron 4 Mg/2 Ml Inj IV 4 mg Q8H PRN Administration Nausea And Vomiting Oxycodone/Acetaminophen 1 tab 05/27/20 00:49 05/29/20 18:33 Oxycodone /Acetaminophen 5-325mg Tab PO 1 tab Q6H PRN Administration Pain, Moderate (4-6) Pseudoephedrine/Acetam/Chlorphenir 10 ml 05/28/20 08:37 05/29/20 19:55 Guaifenesin/Codeine 100-10mg Oral Liqd 5 Ml PO 10 ml Q4H PRN Administration Cough Sodium Chloride 10 ml 05/27/20 10:00 05/29/20 21:14 Sodium Chloride 0.9% 10 Ml Flush Syringe IV 10 ml BID LA Administration Sodium Chloride 10 ml 05/27/20 00:49 Sodium Chloride 0.9% 10 Ml Flush Syringe IV PRN PRN LINE FLUSH Sodium Chloride 50 ml 05/27/20 16:30 05/30/20 05:21 Sodium Chloride 0.9% 50 Ml Ivpb IV 05/30/20 21:01 50 ml Q24HR@2100 LA Administration
[2020-05-30] MEDS: guaiFENesin/CODEINE 100-10MG ORAL LIQD 5 ML PO PRN ×3 (08:37→20:42)
[2020-05-30] MEDS: hydroCHLOROthiazide 25 MG TAB PO SCH (10:22)
[2020-05-30] MEDS: dexAMETHasone 4 MG/ML VIAL IV SCH (10:22)
[2020-05-30] MEDS: FAMOTIDINE 20 MG TAB PO SCH ×2 (10:23→22:15)
[2020-05-30] MEDS: cefTRIAXone/NS 2 GM/100 ML 2 GM/100 ML BAG IV SCH (10:23)
[2020-05-30] MEDS: LISINOPRIL 20 MG TAB PO SCH (10:23)
[2020-05-30] MEDS: oxyCODONE /ACETAMINOPHEN 5-325MG TAB PO PRN ×2 (14:23→22:21)
[2020-05-30] MEDS: VANCOMYCIN 1,250 MG in SODIUM CHLORIDE 0.9% 250ML 250 ML IV SCH (15:16)
[2020-05-30] MEDS: REMDESIVIR 100 MG in SODIUM CHLORIDE 0.9% 250ML 250 ML IV SCH (22:12)
[2020-05-30] MEDS: hydrOXYzine HCL 25 MG TAB PO SCH (22:14)
[2020-05-30] MEDS: ENOXAPARIN 40 MG/0.4 ML INJ SUB-Q SCH (22:14)
[2020-05-31] MEDS: VANCOMYCIN 1,250 MG in SODIUM CHLORIDE 0.9% 250ML 250 ML IV SCH (02:36)
[2020-05-31] MEDS: guaiFENesin/CODEINE 100-10MG ORAL LIQD 5 ML PO PRN ×3 (04:39→21:49)
--- NOTE | 2020-05-31 08:31 | Progress Note ---
Assessment and Plan Assessment and plan: (1) Sepsis Current Visit: Yes Status: Acute Plan to address problem: Elevated Lactic acid tachypnea and Tachycardia (2) Acute and chronic respiratory failure with hypoxia Current Visit: Yes Status: Acute Plan to address problem: Hypoxic initially Needs O2 supplementation (3) Bilateral pneumonia Current Visit: Yes Status: Acute Plan to address problem: Treat as CAP for now IV Ceftriaxone and IV Zithromax initiated IV Decadron for possible covid (4) Suspected 2019 novel coronavirus infection Current Visit: Yes Status: Acute Plan to address problem: Mederos pcr requested (5) Obesity Current Visit: Yes Status: Chronic Qualifiers: Body mass index: BMI 45.0-49.9 Plan to address problem: Needs f//u with bariatric surgery and Diet and exercise Primary team to dormitory counselor (6) DVT prophylaxis Current Visit: Yes Status: Acute Plan to address problem: On Lovenox and GI prophylaxis 05/27/2020 -CTA chest significant for bilateral groundglass opacity suspected of Covid pneumonia. Negative for PE. Patient was started empirically on antibiotics. ID consulted. Started on Decadron. Covid test is pending. Patient was hypoxic initially. -Patient is on 4 L of oxygen. 05/28/2020 -Acute hypoxic respiratory failure secondary to Covid infection, patient is on 5 L of oxygen. History of asthma -CTA showed lateral groundglass opacities -Patient is on IV Decadron and remdesivir -ID consult appreciated 05/29/20 -Acute hypoxic respiratory failure secondary to Covid infection, patient is on 5 L of oxygen. History of asthma -CTA showed lateral groundglass opacities -Patient is on IV Decadron and remdesivir -ID consult appreciated; patient is on ceftriaxone and vancomycin -Lactic acid is still high 05/30/2020 -Continue with remdesivir and Decadron -Changes still on 4 L of oxygen -CTA chest and Doppler ultrasound of the lower extremities was done and negative for DVT. CTA is significant for multifocal pneumonia due to Covid 05/31/2020 -Patient will finish remdesivir today, continue with Decadron for 10 days -On 3L oxygen -ID consult appreciated -No PE or DVT -I ordered PT evaluation today -We will titrate oxygen as tolerated Disposition; patient can be discharged tomorrow, need home oxygen evaluation. History Interval history: Patient was seen and evaluated this morning Patient was on 3 L of oxygen Patient is complaining loss of appetite Hospitalist Physical - Physical exam Narrative exam: Not in cardiopulmonary distress. The patient is obese Vital signs as documented. Head exam is unremarkable. No scleral icterus . Neck is without jugular venous distension, thyromegaly, or carotid bruits. Lungs are clear to auscultation. Cardiac exam reveals regular rate and Rhythm. Abdominal exam reveals normal bowel sounds, nontender, no organomegaly. Extremities are nonedematous and both femoral and pedal pulses are normal. 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 No focal weakness. - Constitutional Vitals: Temp Pulse Resp BP Pulse Ox 97.5 F L 52 L 20 126/63 95 05/31/20 04:15 05/31/20 04:15 05/31/20 04:15 05/31/20 04:15 05/31/20 04:15 General appearance: Present: mild distress, well-nourished HEART Score - HEART Score Age: 45-65 Risk factors: 1-2 risk factors Troponin: Troponin T < 0.010 ng/mL (0.00-0.029) 05/26/20 14:13 Troponin: < normal limit - Critical Actions Critical Actions: 0-3 pts:0.9-1.7%risk of adverse cardiac event.Candidate for discharge Results - Labs CBC & Chem 7: 05/28/20 06:45 05/30/20 06:30 Labs: Laboratory Last Values WBC 10.3 K/mm3 (4.5-11.0) 05/28/20 06:45 RBC 4.17 M/mm3 (3.65-5.03) 05/28/20 06:45 Hgb 13.1 gm/dl (10.1-14.3) 05/28/20 06:45 Hct 38.1 % (30.3-42.9) 05/28/20 06:45 MCV 91 fl (79-97) 05/28/20 06:45 MCH 31 pg (28-32) 05/28/20 06:45 MCHC 34 % (30-34) 05/28/20 06:45 RDW 13.2 % (13.2-15.2) 05/28/20 06:45 Plt Count 219 K/mm3 (140-440) 05/28/20 06:45 Lymph % (Auto) 4.8 % (13.4-35.0) L 05/28/20 06:45 [place] % (Auto) 7.3 % (0.0-7.3) 05/28/20 06:45 Eos % (Auto) 0.0 % (0.0-4.3) 05/28/20 06:45 Baso % (Auto) 0.1 % (0.0-1.8) 05/28/20 06:45 Lymph # (Auto) 0.5 K/mm3 (1.2-5.4) L 05/28/20 06:45 [place] # (Auto) 0.7 K/mm3 (0.0-0.8) 05/28/20 06:45 Eos # (Auto) 0.0 K/mm3 (0.0-0.4) 05/28/20 06:45 Baso # (Auto) 0.0 K/mm3 (0.0-0.1) 05/28/20 06:45 Seg Neutrophils % 87.8 % (40.0-70.0) H 05/28/20 06:45 Seg Neutrophils # 9.0 K/mm3 (1.8-7.7) H 05/28/20 06:45 D-Dimer 377.36 ng/mlDDU (0-234) H 05/28/20 16:41 Sodium 143 mmol/L (137-145) 05/30/20 06:30 Potassium 4.0 mmol/L (3.6-5.0) 05/30/20 06:30 Chloride 104.7 mmol/L (98-107) 05/30/20 06:30 Carbon Dioxide 31 mmol/L (22-30) H 05/30/20 06:30 Anion Gap 11 mmol/L 05/30/20 06:30 BUN 14 mg/dL (7-17) 05/30/20 06:30 Creatinine 0.7 mg/dL (0.6-1.2) 05/30/20 06:30 Estimated GFR > 60 ml/min 05/30/20 06:30 BUN/Creatinine Ratio 20 % 05/30/20 06:30 Glucose 110 mg/dL (65-100) H 05/30/20 06:30 Hemoglobin A1c 5.5 % (4-6) 05/27/20 03:45 Lactic Acid 1.00 mmol/L (0.7-2.0) 05/27/20 07:55 Calcium 7.9 mg/dL (8.4-10.2) L 05/30/20 06:30 Ferritin 980.2 ng/mL (10.0-200.0) H 05/28/20 16:41 Total Bilirubin 0.30 mg/dL (0.1-1.2) 05/30/20 06:30 AST 22 units/L (5-40) 05/30/20 06:30 ALT 17 units/L (7-56) 05/30/20 06:30 Alkaline Phosphatase 54 units/L (35-129) 05/30/20 06:30 Lactate Dehydrogenase 431 units/L (91-180) H 05/28/20 06:45 Troponin T < 0.010 ng/mL (0.00-0.029) 05/26/20 14:13 C-Reactive Protein 7.80 mg/dL (0.00-1.30) H 05/28/20 06:45 NT-Pro-B Natriuret Pep 53.54 pg/mL (0-900) 05/26/20 14:13 Total Protein 6.1 g/dL (6.3-8.2) L 05/30/20 06:30 Albumin 3.5 g/dL (3.9-5) L 05/30/20 06:30 Albumin/Globulin Ratio 1.3 % 05/30/20 06:30 Procalcitonin 0.45 ng/mL (<0.15) 05/28/20 16:41 Urine Color Yellow (Yellow) 05/28/20 14:25 Urine Turbidity Clear (Clear) 05/28/20 14:25 Urine pH 6.0 (5.0-7.0) 05/28/20 14:25 Ur Specific [place] 1.016 (1.003-1.030) 05/28/20 14:25 Urine Protein <15 mg/dl mg/dL (Negative) 05/28/20 14:25 Urine Glucose (UA) Neg mg/dL (Negative) 05/28/20 14:25 Urine Ketones Neg mg/dL (Negative) 05/28/20 14:25 Urine Blood Neg (Negative) 05/28/20 14:25 Urine Nitrite Neg (Negative) 05/28/20 14:25 Urine Bilirubin Neg (Negative) 05/28/20 14:25 Urine Urobilinogen 4.0 mg/dL (<2.0) 05/28/20 14:25 Ur Leukocyte Esterase Neg (Negative) 05/28/20 14:25 Urine WBC (Auto) 1.0 /HPF (0.0-6.0) 05/28/20 14:25 Urine RBC (Auto) 1.0 /HPF (0.0-6.0) 05/28/20 14:25 U Epithel Cells (Auto) 1.0 /HPF (0-13.0) 05/28/20 14:25 Urine Mucus Few /HPF 05/28/20 14:25 Vancomycin Trough 23.4 ug/mL (5.0-20.0) H 05/29/20 20:36 Coronavirus (PCR) Positive (Negative) A 05/26/20 10:15 Microbiology: Microbiology 05/26/20 15:17 Peripheral/Venous Blood Culture - Preliminary NO GROWTH AFTER 4 DAYS 05/29/20 15:01 Peripheral/Venous Blood Culture - Preliminary NO GROWTH AFTER 24 HOURS 05/29/20 15:01 Peripheral/Venous Blood Culture - Preliminary NO GROWTH AFTER 24 HOURS Harris/IV: Voiding Method Bedside Commode Active Medications - Current Medications Current Medications: Generic Name Dose Route Start Last Admin Trade Name Freq PRN Reason Stop Dose Admin Acetaminophen 650 mg 05/27/20 00:49 Acetaminophen 325 Mg Tab PO Q4H PRN Pain MILD(1-3)/Fever >100.5/MAHARAJ Albuterol 2.5 mg 05/27/20 15:16 05/27/20 15:49 Albuterol 2.5 Mg/3 Ml Nebu IH 2.5 mg Q4HRT PRN Administration Shortness Of Breath Albuterol 2 puff 05/27/20 19:42 Albuterol 8.5 Gm Mdi Inhalation IH Q6HRT PRN Shortness Of Breath Dexamethasone 8 mg 05/27/20 10:00 05/30/20 10:22 Dexamethasone 4 Mg/Ml Vial IV 06/04/20 10:01 8 mg Q24HR LA Administration Enoxaparin Sodium 40 mg 05/27/20 22:00 05/30/20 22:14 Enoxaparin 40 Mg/0.4 Ml Inj SUB-Q 40 mg QDAY@2200 LA Administration Protocol Famotidine 20 mg 05/27/20 10:00 05/30/20 22:15 Famotidine 20 Mg Tab PO 20 mg BID LA Administration Hydrochlorothiazide 25 mg 05/27/20 10:00 05/30/20 10:22 Hydrochlorothiazide 25 Mg Tab PO 25 mg QDAY LA Administration Hydroxyzine HCl 25 mg 05/27/20 22:00 05/30/20 22:14 Hydroxyzine Hcl 25 Mg Tab PO 25 mg QHS LA Administration Ceftriaxone Sodium 2 gm in 100 mls @ 200 mls/hr 05/27/20 10:00 05/30/20 10:23 Rocephin/Ns 2 Gm/100 Ml IV 200 mls/hr Q24HR LA Administration Protocol Sodium Chloride 1,000 mls @ 125 mls/hr 05/27/20 05:00 05/29/20 18:29 Nacl 0.9% 1000 Ml IV 125 mls/hr DIRECT LA Administration REMDESIVIR 100 mg/ Sodium 250 mls @ 500 mls/hr 05/28/20 21:00 05/30/20 23:26 Chloride IV 05/31/20 21:29 Infused Q24HR@2100 LA Infusion Vancomycin HCl 1,250 mg/ 275 mls @ 166.667 mls/hr 05/30/20 15:00 05/31/20 04:32 Sodium Chloride IV Infused Q12H LA Infusion Lisinopril 20 mg 05/27/20 10:00 05/30/20 10:23 Lisinopril 20 Mg Tab PO 20 mg QDAY LA Administration Metoclopramide HCl 10 mg 05/27/20 00:49 Metoclopramide 10 Mg/2 Ml Inj IV Q6H PRN Nausea And Vomiting Morphine Sulfate 2 mg 05/27/20 00:49 05/29/20 19:55 Morphine 2 Mg/1 Ml Inj IV 2 mg Q4H PRN Administration Pain, Moderate (4-6) Ondansetron HCl 4 mg 05/27/20 00:49 05/27/20 15:32 Ondansetron 4 Mg/2 Ml Inj IV 4 mg Q8H PRN Administration Nausea And Vomiting Oxycodone/Acetaminophen 1 tab 05/27/20 00:49 05/30/20 22:21 Oxycodone /Acetaminophen 5-325mg Tab PO 1 tab Q6H PRN Administration Pain, Moderate (4-6) Pseudoephedrine/Acetam/Chlorphenir 10 ml 05/28/20 08:37 05/31/20 04:39 Guaifenesin/Codeine 100-10mg Oral Liqd 5 Ml PO 10 ml Q4H PRN Administration Cough Sodium Chloride 10 ml 05/27/20 10:00 05/30/20 22:15 Sodium Chloride 0.9% 10 Ml Flush Syringe IV 10 ml BID LA Administration Sodium Chloride 10 ml 05/27/20 00:49 Sodium Chloride 0.9% 10 Ml Flush Syringe IV PRN PRN LINE FLUSH
[2020-05-31] MEDS: hydroCHLOROthiazide 25 MG TAB PO SCH (10:27)
[2020-05-31] MEDS: dexAMETHasone 4 MG/ML VIAL IV SCH (10:28)
[2020-05-31] MEDS: FAMOTIDINE 20 MG TAB PO SCH ×2 (10:28→21:31)
[2020-05-31] MEDS: cefTRIAXone/NS 2 GM/100 ML 2 GM/100 ML BAG IV SCH (10:29)
[2020-05-31] MEDS: LISINOPRIL 20 MG TAB PO SCH (10:35)
[2020-05-31] MEDS: oxyCODONE /ACETAMINOPHEN 5-325MG TAB PO PRN ×2 (12:32→19:40)
--- NOTE | 2020-05-31 12:45 | Progress Note ---
Assessment and Plan Cultures: Blood culture 05/26/2020 growing gram variable rods 1 out of 4. 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 Procalcitonin 0.2--> 0.4. Urinalysis negative. #Severe COVID pneumonia: Chest x-ray with bibasilar opacities. CT chest shows no PE, patchy groundglass opacities. Elevated markers. D-dimer 319. CRP 17. LDH 502. Ferritin 709. Markers uptrending. #Gram variable rods: 1 out of 4. likely contaminant, repeat blood cultures no growth #Acute hypoxemic respiratory failure: sats dropped to 89%, worsening now on 3 L #Morbid obesity: associated with worse outcomes Recommendations: -Stop vancomycin -Patient with severe coughing spells, please consult pulmonary -Continue Dexamethasone IV/PO daily for 10 days -Continue Remdesivir for 5 days (CrCl>30 mg/mL) D5 of 5 -Monitor inflammatory markers - ferritin, Ddimer, CRP, LDH -Monitor liver function test on Remdesivir -Continue anticoagulation per System Protocol -Prone positioning as possible -Completed ceftriaxone azithromycin Close monitoring high risk of decompensation Will follow Ryanne Ramires MD [facility]ious [facility] [phone] Subjective Date of service: 05/31/20 Principal diagnosis: COVID Interval history: Patient reports feeling tired, reports severe coughing spells, no fever, currently on 3 L. No desaturations noted. Objective - Exam Narrative Exam: General appearance: Alert anxious, severe coughing especially Eyes: anicteric sclerae, moist conjunctivae; no lid-lag; PERRLA HENT: Normocephalic, Atraumatic; normal external ears, nares open, oropharynx clear with moist mucous membranes and no oral thrush Neck: supple, tracheal midline, no JVD Lungs: Difficult exam due to coughing CV: Tachycardic Abdomen: Soft, non-tender Extremities: no edema, no cyanosis Skin: No rash. Psych: Anxious Neuro: alert and oriented x 3. Moving all extermities - Constitutional Vitals: Vital Signs Temp Pulse Resp BP Pulse Ox 97.5 F L 62 20 125/61 96 05/31/20 04:15 05/31/20 10:35 05/31/20 04:15 05/31/20 10:35 05/31/20 09:56 Temperature -Last 24 Hours Temperature 97.5 F Temperature 97.7 F - Labs CBC & Chem 7: 05/28/20 06:45 05/30/20 06:30
[2020-05-31] MEDS: REMDESIVIR 100 MG in SODIUM CHLORIDE 0.9% 250ML 250 ML IV SCH (21:31)
[2020-05-31] MEDS: ENOXAPARIN 40 MG/0.4 ML INJ SUB-Q SCH (21:31)
[2020-05-31] MEDS: hydrOXYzine HCL 25 MG TAB PO SCH (21:31)
[2020-05-31] MEDS: MORPHINE 2 MG/1 ML INJ IV PRN (23:16)
[2020-06-01] MEDS: guaiFENesin/CODEINE 100-10MG ORAL LIQD 5 ML PO PRN (08:16)
--- NOTE | 2020-06-01 08:32 | Progress Note ---
Assessment and Plan Assessment and plan: Patient is a 65-year-old female with history of hypertension and obesity currently visiting from [facility]. She recently drove here in a truck. She presents to the ER with chest tightness, cough, shortness of breath, malaise and fatigue. Her symptoms have been present for 1 week. She denies loss of taste and smell. Positive muscle aches. No leg pain or leg swelling. No hematemesis or bright red blood per rectum. Does not have a local primary care doctor. Typically resides in [facility]. She reports that every couple years, "I get double pneumonia." She has not been around any Covid positive individuals that she is aware of. (1) Sepsis Current Visit: Yes Status: Acute Plan to address problem: Elevated Lactic acid tachypnea and Tachycardia (2) Acute and chronic respiratory failure with hypoxia Current Visit: Yes Status: Acute Plan to address problem: Hypoxic initially Needs O2 supplementation (3) Bilateral pneumonia Current Visit: Yes Status: Acute Plan to address problem: Treat as CAP for now IV Ceftriaxone and IV Zithromax initiated IV Decadron for possible covid (4) Suspected 2019 novel coronavirus infection Current Visit: Yes Status: Acute Plan to address problem: Mederos pcr requested (5) Obesity Current Visit: Yes Status: Chronic Qualifiers: Body mass index: BMI 45.0-49.9 Plan to address problem: Needs f//u with bariatric surgery and Diet and exercise Primary team to group counselor (6) DVT prophylaxis Current Visit: Yes Status: Acute Plan to address problem: On Lovenox and GI prophylaxis 05/27/2020 -CTA chest significant for bilateral groundglass opacity suspected of Covid pneumonia. Negative for PE. Patient was started empirically on antibiotics. ID consulted. Started on Decadron. Covid test is pending. Patient was hypoxic initially. -Patient is on 4 L of oxygen. 05/28/2020 -Acute hypoxic respiratory failure secondary to Covid infection, patient is on 5 L of oxygen. History of asthma -CTA showed lateral groundglass opacities -Patient is on IV Decadron and remdesivir -ID consult appreciated 05/29/20 -Acute hypoxic respiratory failure secondary to Covid infection, patient is on 5 L of oxygen. History of asthma -CTA showed lateral groundglass opacities -Patient is on IV Decadron and remdesivir -ID consult appreciated; patient is on ceftriaxone and vancomycin -Lactic acid is still high 05/30/2020 -Continue with remdesivir and Decadron -Changes still on 4 L of oxygen -CTA chest and Doppler ultrasound of the lower extremities was done and negative for DVT. CTA is significant for multifocal pneumonia due to Covid 05/31/2020 -Patient will finish remdesivir today, continue with Decadron for 10 days -On 3L oxygen -ID consult appreciated -No PE or DVT -I ordered PT evaluation today -We will titrate oxygen as tolerated 06/01: Patient remains on 3 liters, awaiting re-evaluation today and a Walk test. Anticipate discharge in a.m. I did give her extensive advice considering the long distance travel high risk for development of VTE's and also need to ensure adequate oxygen. Also due to noted cough overnight, will change cough medicine, ID input noted, will consider Pulmonary consult if cough worse with the change in medication or worsening exertional dyspnea. CTA chest reviewed, mutifocal pneumonia noted. Will check Chest xray today. Disposition; patient can be discharged TODAY, need home oxygen evaluation. History Interval history: Patient seen and examined this morning reports improvement in symptoms still with pain only with cough around the rib cages. Still with mild shortness of breath. Tells me that they will be driving back to [place] while she is discharged she does understand that she will need oxygen. Hospitalist Physical - Physical exam Narrative exam: VITAL SIGNS: Reviewed. GENERAL: The patient appears normally developed, obese vital signs as documented. HEAD: No signs of head trauma. EYES: Pupils are equal. Extraocular motions intact. EARS: Hearing grossly intact. MOUTH: Oropharynx is normal. NECK: No adenopathy, no JVD. CHEST: Chest with diminished breath sounds bilaterally. No wheezes, rales, or rhonchi. CARDIAC: Regular rate and rhythm. S1 and S2, without murmurs, gallops, or rubs. VASCULAR: No Edema. Peripheral pulses normal and equal in all extremities. ABDOMEN: Soft, non tender and non distended. No rebound or guarding, and no masses palpated. Bowel Sounds normal. MUSCULOSKELETAL: Good range of motion of all major joints. Extremities without clubbing, cyanosis or edema. NEUROLOGIC EXAM: Alert and oriented x 3 No focal sensory or strength d eficits. Speech normal. Follows commands. PSYCHIATRIC: Mood normal. SKIN: detail exam as documented in skin assessment - Constitutional Vitals: Temp Pulse Resp BP Pulse Ox 97.7 F 54 L 20 129/73 97 06/01/20 04:47 06/01/20 04:47 06/01/20 04:47 06/01/20 04:47 06/01/20 04:47 General appearance: Present: mild distress, well-nourished HEART Score - HEART Score Age: 45-65 Risk factors: 1-2 risk factors Troponin: Troponin T < 0.010 ng/mL (0.00-0.029) 05/26/20 14:13 Troponin: < normal limit - Critical Actions Critical Actions: 0-3 pts:0.9-1.7%risk of adverse cardiac event.Candidate for discharge Results - Labs CBC & Chem 7: 05/28/20 06:45 05/30/20 06:30 Labs: Laboratory Last Values WBC 10.3 K/mm3 (4.5-11.0) 05/28/20 06:45 RBC 4.17 M/mm3 (3.65-5.03) 05/28/20 06:45 Hgb 13.1 gm/dl (10.1-14.3) 05/28/20 06:45 Hct 38.1 % (30.3-42.9) 05/28/20 06:45 MCV 91 fl (79-97) 05/28/20 06:45 MCH 31 pg (28-32) 05/28/20 06:45 MCHC 34 % (30-34) 05/28/20 06:45 RDW 13.2 % (13.2-15.2) 05/28/20 06:45 Plt Count 219 K/mm3 (140-440) 05/28/20 06:45 Lymph % (Auto) 4.8 % (13.4-35.0) L 05/28/20 06:45 [place] % (Auto) 7.3 % (0.0-7.3) 05/28/20 06:45 Eos % (Auto) 0.0 % (0.0-4.3) 05/28/20 06:45 Baso % (Auto) 0.1 % (0.0-1.8) 05/28/20 06:45 Lymph # (Auto) 0.5 K/mm3 (1.2-5.4) L 05/28/20 06:45 [place] # (Auto) 0.7 K/mm3 (0.0-0.8) 05/28/20 06:45 Eos # (Auto) 0.0 K/mm3 (0.0-0.4) 05/28/20 06:45 Baso # (Auto) 0.0 K/mm3 (0.0-0.1) 05/28/20 06:45 Seg Neutrophils % 87.8 % (40.0-70.0) H 05/28/20 06:45 Seg Neutrophils # 9.0 K/mm3 (1.8-7.7) H 05/28/20 06:45 D-Dimer 529.49 ng/mlDDU (0-234) H 05/31/20 13:50 Sodium 143 mmol/L (137-145) 05/30/20 06:30 Potassium 4.0 mmol/L (3.6-5.0) 05/30/20 06:30 Chloride 104.7 mmol/L (98-107) 05/30/20 06:30 Carbon Dioxide 31 mmol/L (22-30) H 05/30/20 06:30 Anion Gap 11 mmol/L 05/30/20 06:30 BUN 14 mg/dL (7-17) 05/30/20 06:30 Creatinine 0.7 mg/dL (0.6-1.2) 05/30/20 06:30 Estimated GFR > 60 ml/min 05/30/20 06:30 BUN/Creatinine Ratio 20 % 05/30/20 06:30 Glucose 110 mg/dL (65-100) H 05/30/20 06:30 Hemoglobin A1c 5.5 % (4-6) 05/27/20 03:45 Lactic Acid 1.00 mmol/L (0.7-2.0) 05/27/20 07:55 Calcium 7.9 mg/dL (8.4-10.2) L 05/30/20 06:30 Ferritin 829.7 ng/mL (10.0-200.0) H 05/31/20 13:50 Total Bilirubin 0.30 mg/dL (0.1-1.2) 05/30/20 06:30 AST 22 units/L (5-40) 05/30/20 06:30 ALT 17 units/L (7-56) 05/30/20 06:30 Alkaline Phosphatase 54 units/L (35-129) 05/30/20 06:30 Lactate Dehydrogenase 416 units/L (91-180) H 05/31/20 13:50 Troponin T < 0.010 ng/mL (0.00-0.029) 05/26/20 14:13 C-Reactive Protein 4.00 mg/dL (0.00-1.30) H 05/31/20 13:50 NT-Pro-B Natriuret Pep 53.54 pg/mL (0-900) 05/26/20 14:13 Total Protein 6.1 g/dL (6.3-8.2) L 05/30/20 06:30 Albumin 3.5 g/dL (3.9-5) L 05/30/20 06:30 Albumin/Globulin Ratio 1.3 % 05/30/20 06:30 Procalcitonin 0.45 ng/mL (<0.15) 05/28/20 16:41 Urine Color Yellow (Yellow) 05/28/20 14:25 Urine Turbidity Clear (Clear) 05/28/20 14:25 Urine pH 6.0 (5.0-7.0) 05/28/20 14:25 Ur Specific [place] 1.016 (1.003-1.030) 05/28/20 14:25 Urine Protein <15 mg/dl mg/dL (Negative) 05/28/20 14:25 Urine Glucose (UA) Neg mg/dL (Negative) 05/28/20 14:25 Urine Ketones Neg mg/dL (Negative) 05/28/20 14:25 Urine Blood Neg (Negative) 05/28/20 14:25 Urine Nitrite Neg (Negative) 05/28/20 14:25 Urine Bilirubin Neg (Negative) 05/28/20 14:25 Urine Urobilinogen 4.0 mg/dL (<2.0) 05/28/20 14:25 Ur Leukocyte Esterase Neg (Negative) 05/28/20 14:25 Urine WBC (Auto) 1.0 /HPF (0.0-6.0) 05/28/20 14:25 Urine RBC (Auto) 1.0 /HPF (0.0-6.0) 05/28/20 14:25 U Epithel Cells (Auto) 1.0 /HPF (0-13.0) 05/28/20 14:25 Urine Mucus Few /HPF 05/28/20 14:25 Vancomycin Trough 23.4 ug/mL (5.0-20.0) H 05/29/20 20:36 Coronavirus (PCR) Positive (Negative) A 05/26/20 10:15 Microbiology: Microbiology 05/26/20 15:17 Peripheral/Venous Blood Culture - Final NO GROWTH AFTER 5 DAYS 05/29/20 15:01 Peripheral/Venous Blood Culture - Preliminary NO GROWTH AFTER 48 HOURS 05/29/20 15:01 Peripheral/Venous Blood Culture - Preliminary NO GROWTH AFTER 48 HOURS Harris/IV: Voiding Method Toilet Active Medications - Current Medications Current Medications: Generic Name Dose Route Start Last Admin Trade Name Freq PRN Reason Stop Dose Admin Acetaminophen 650 mg 05/27/20 00:49 Acetaminophen 325 Mg Tab PO Q4H PRN Pain MILD(1-3)/Fever >100.5/MAHARAJ Albuterol 2.5 mg 05/27/20 15:16 05/27/20 15:49 Albuterol 2.5 Mg/3 Ml Nebu IH 2.5 mg Q4HRT PRN Administration Shortness Of Breath Albuterol 2 puff 05/27/20 19:42 Albuterol 8.5 Gm Mdi Inhalation IH Q6HRT PRN Shortness Of Breath Dexamethasone 8 mg 05/27/20 10:00 05/31/20 10:28 Dexamethasone 4 Mg/Ml Vial IV 06/04/20 10:01 8 mg Q24HR LA Administration Enoxaparin Sodium 40 mg 05/27/20 22:00 05/31/20 21:31 Enoxaparin 40 Mg/0.4 Ml Inj SUB-Q 40 mg QDAY@2200 LA Administration Protocol Famotidine 20 mg 05/27/20 10:00 05/31/20 21:31 Famotidine 20 Mg Tab PO 20 mg BID LA Administration Guaifenesin 10 ml 06/01/20 08:31 Guaifenesin Dm 200/20 Mg Oral Liqd 10 Ml PO Q4H PRN Cough Hydrochlorothiazide 25 mg 05/27/20 10:00 05/31/20 10:27 Hydrochlorothiazide 25 Mg Tab PO 25 mg QDAY LA Administration Hydroxyzine HCl 25 mg 05/27/20 22:00 05/31/20 21:31 Hydroxyzine Hcl 25 Mg Tab PO 25 mg QHS LA Administration Sodium Chloride 1,000 mls @ 125 mls/hr 05/27/20 05:00 05/29/20 18:29 Nacl 0.9% 1000 Ml IV 125 mls/hr DIRECT LA Administration Lisinopril 20 mg 05/27/20 10:00 05/31/20 10:35 Lisinopril 20 Mg Tab PO 20 mg QDAY LA Administration Metoclopramide HCl 10 mg 05/27/20 00:49 Metoclopramide 10 Mg/2 Ml Inj IV Q6H PRN Nausea And Vomiting Morphine Sulfate 2 mg 05/27/20 00:49 05/31/20 23:16 Morphine 2 Mg/1 Ml Inj IV 2 mg Q4H PRN Administration Pain, Moderate (4-6) Ondansetron HCl 4 mg 05/27/20 00:49 05/27/20 15:32 Ondansetron 4 Mg/2 Ml Inj IV 4 mg Q8H PRN Administration Nausea And Vomiting Oxycodone/Acetaminophen 1 tab 05/27/20 00:49 05/31/20 19:40 Oxycodone /Acetaminophen 5-325mg Tab PO 1 tab Q6H PRN Administration Pain, Moderate (4-6) Sodium Chloride 10 ml 05/27/20 10:00 05/31/20 21:32 Sodium Chloride 0.9% 10 Ml Flush Syringe IV 10 ml BID LA Administration Sodium Chloride 10 ml 05/27/20 00:49 Sodium Chloride 0.9% 10 Ml Flush Syringe IV PRN PRN LINE FLUSH
--- NOTE | 2020-06-01 09:23 | XRay Report ---
CHEST 1 VIEW INDICATION: cough COMPARISON: 05/26/2020 FINDINGS: SUPPORT DEVICES: None. HEART / MEDIASTINUM: No significant abnormality. LUNGS / PLEURA: Patchy bilateral airspace changes are identified with slight improvement in aeration throughout both lungs as compared to previous exam. No pneumothorax. ADDITIONAL FINDINGS: IMPRESSION: 1. Persistent but improved appearance the chest is compared to previous exam Signer Name: Siddhartha Wood MD Signed: 06/01/2020 9:19 AM Workstation Name: [id number]
[2020-06-01] MEDS: LISINOPRIL 20 MG TAB PO SCH (09:53)
[2020-06-01] MEDS: FAMOTIDINE 20 MG TAB PO SCH ×2 (09:53→21:35)
[2020-06-01] MEDS: DEXAMETHASONE 4 MG TAB PO SCH (09:53)
[2020-06-01] MEDS: hydroCHLOROthiazide 25 MG TAB PO SCH (09:54)
[2020-06-01] MEDS: oxyCODONE /ACETAMINOPHEN 5-325MG TAB PO PRN ×2 (10:26→16:24)
--- NOTE | 2020-06-01 14:24 | Progress Note ---
Assessment and Plan Cultures: Blood culture 05/26/2020 growing gram variable rods 1 out of 4. 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 Procalcitonin 0.2--> 0.4. Urinalysis negative. #Severe COVID pneumonia: Chest x-ray with bibasilar opacities. CT chest shows no PE, patchy groundglass opacities. Elevated markers. D-dimer 319. CRP 17. LDH 502. Ferritin 709. Markers uptrending. #Gram variable rods: 1 out of 4. likely contaminant, repeat blood cultures no growth #Acute hypoxemic respiratory failure: sats dropped to 89%, stable on 3 L #Morbid obesity: associated with worse outcomes Recommendations: -Continue Dexamethasone IV/PO daily for 10 days -Completed remdesivir -Monitor inflammatory markers - ferritin, Ddimer, CRP, LDH -Continue anticoagulation per System Protocol -Prone positioning as possible Maria Elena Mrorell MD [facility] ([facility] O: [phone] F: [phone] Subjective Date of service: 06/01/20 Principal diagnosis: COVID Interval history: Afebrile, normal white count. Currently on 3 L nasal cannula. Imaging personally reviewed: Chest x-ray: Improved infiltrates. Objective - Exam Narrative Exam: Physical exam deferred due to PPE conservation strategy. Please refer to primary team's note. - Constitutional Vitals: Vital Signs Temp Pulse Resp BP Pulse Ox 97.7 F 62 20 130/68 97 06/01/20 04:47 06/01/20 09:53 06/01/20 04:47 06/01/20 09:53 06/01/20 04:47 Temperature -Last 24 Hours Temperature 97.7 F Temperature 98.5 F - Labs CBC & Chem 7: 05/28/20 06:45 05/30/20 06:30 Labs: Abnormal lab results 04/11/21 04/11/21 04/11/21 Range/Units 13:50 13:50 13:50 D-Dimer 529.49 H (0-234) ng/mlDDU Ferritin 829.7 H (10.0-200.0) ng/mL Lactate Dehydrogenase 416 H (91-180) units/L C-Reactive Protein 4.00 H (0.00-1.30) mg/dL
[2020-06-01] MEDS: guaiFENesin DM 200/20 MG ORAL LIQD 10 ML PO PRN ×3 (14:32→21:32)
[2020-06-01] MEDS: ENOXAPARIN 40 MG/0.4 ML INJ SUB-Q SCH (21:32)
[2020-06-01] MEDS: hydrOXYzine HCL 25 MG TAB PO SCH (21:33)
[2020-06-02] MEDS: guaiFENesin DM 200/20 MG ORAL LIQD 10 ML PO PRN ×6 (03:44→23:02)
[2020-06-02] MEDS: oxyCODONE /ACETAMINOPHEN 5-325MG TAB PO PRN ×3 (03:50→16:57)
[2020-06-02] MEDS: MORPHINE 2 MG/1 ML INJ IV PRN ×2 (07:57→23:02)
[2020-06-02] MEDS: DEXAMETHASONE 4 MG TAB PO SCH (09:45)
[2020-06-02] MEDS: FAMOTIDINE 20 MG TAB PO SCH ×2 (09:46→21:40)
[2020-06-02] MEDS: hydroCHLOROthiazide 25 MG TAB PO SCH (09:46)
[2020-06-02] MEDS: LISINOPRIL 20 MG TAB PO SCH (09:49)
--- NOTE | 2020-06-02 09:58 | Progress Note ---
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 Negative for PE. Patient was started empirically on antibiotics. ID consulted. Started on Decadron. Covid test is pending. Patient was hypoxic initially. -Patient is on 4 L of oxygen. 05/28/2020 -Acute hypoxic respiratory failure secondary to Covid infection, patient is on 5 L of oxygen. History of asthma -CTA showed lateral groundglass opacities -Patient is on IV Decadron and remdesivir -ID consult appreciated 05/29/20 -Acute hypoxic respiratory failure secondary to Covid infection, patient is on 5 L of oxygen. History of asthma -CTA showed lateral groundglass opacities -Patient is on IV Decadron and remdesivir -ID consult appreciated; patient is on ceftriaxone and vancomycin -Lactic acid is still high 05/30/2020 -Continue with remdesivir and Decadron -Changes still on 4 L of oxygen -CTA chest and Doppler ultrasound of the lower extremities was done and negative for DVT. CTA is significant for multifocal pneumonia due to Covid 05/31/2020 -Patient will finish remdesivir today, continue with Decadron for 10 days -On 3L oxygen -ID consult appreciated -No PE or DVT -I ordered PT evaluation today -We will titrate oxygen as tolerated 06/01: Patient remains on 3 liters, awaiting re-evaluation today and a Walk test. Anticipate discharge in a.m. I did give her extensive advice considering the long distance travel high risk for development of VTE's and also need to ensure adequate oxygen. Also due to noted cough overnight, will change cough medicine, ID input noted, will consider Pulmonary consult if cough worse with the change in medication or worsening exertional dyspnea. CTA chest reviewed, mutifocal pneumonia noted. Will check Chest xray today. 06/02: Chest x-ray showed persistence of pneumonia but improved since previous exam. Patient still requiring 3 L nasal cannula oxygen satting at 97%. Continue dexamethasone daily for total of 10 days. Remdesivir has been completed. Continue to monitor inflammatory markers. Encourage prone positioning. Continue anticoagulation per protocol. Anticipate discharge in a.m. Check exercise pulse oximetry. History Interval history: No new issues overnight. Hospitalist Physical - Constitutional Vitals: Temp Pulse Resp BP Pulse Ox 98.5 F 61 18 124/58 96 06/02/20 06:44 06/02/20 09:49 06/02/20 06:44 06/02/20 09:49 06/02/20 07:37 General appearance: Present: no acute distress, well-nourished - EENT Eyes: Present: PERRL, EOM intact ENT: hearing intact, clear oral mucosa, dentition normal - Neck Neck: Present: supple, normal ROM - Respiratory Respiratory effort: normal Respiratory: bilateral: CTA - Cardiovascular Rhythm: regular Heart Sounds: Present: S1 & S2. Absent: gallop, rub - Extremities Extremities: no ischemia, No edema, Full ROM - Abdominal General gastrointestinal: soft, non-tender, non-distended, normal bowel sounds - Integumentary Integumentary: Present: clear, warm, dry - Neurologic Neurologic: CNII-XII intact, moves all extremities HEART Score - HEART Score Age: 45-65 Risk factors: 1-2 risk factors Troponin: Troponin T < 0.010 ng/mL (0.00-0.029) 05/26/20 14:13 Troponin: < normal limit - Critical Actions Critical Actions: 0-3 pts:0.9-1.7%risk of adverse cardiac event.Candidate for discharge Results - Labs CBC & Chem 7: 05/28/20 06:45 05/30/20 06:30 Labs: Laboratory Last Values WBC 10.3 K/mm3 (4.5-11.0) 05/28/20 06:45 RBC 4.17 M/mm3 (3.65-5.03) 05/28/20 06:45 Hgb 13.1 gm/dl (10.1-14.3) 05/28/20 06:45 Hct 38.1 % (30.3-42.9) 05/28/20 06:45 MCV 91 fl (79-97) 05/28/20 06:45 MCH 31 pg (28-32) 05/28/20 06:45 MCHC 34 % (30-34) 05/28/20 06:45 RDW 13.2 % (13.2-15.2) 05/28/20 06:45 Plt Count 219 K/mm3 (140-440) 05/28/20 06:45 Lymph % (Auto) 4.8 % (13.4-35.0) L 05/28/20 06:45 [place] % (Auto) 7.3 % (0.0-7.3) 05/28/20 06:45 Eos % (Auto) 0.0 % (0.0-4.3) 05/28/20 06:45 Baso % (Auto) 0.1 % (0.0-1.8) 05/28/20 06:45 Lymph # (Auto) 0.5 K/mm3 (1.2-5.4) L 05/28/20 06:45 [place] # (Auto) 0.7 K/mm3 (0.0-0.8) 05/28/20 06:45 Eos # (Auto) 0.0 K/mm3 (0.0-0.4) 05/28/20 06:45 Baso # (Auto) 0.0 K/mm3 (0.0-0.1) 05/28/20 06:45 Seg Neutrophils % 87.8 % (40.0-70.0) H 05/28/20 06:45 Seg Neutrophils # 9.0 K/mm3 (1.8-7.7) H 05/28/20 06:45 D-Dimer 529.49 ng/mlDDU (0-234) H 05/31/20 13:50 Sodium 143 mmol/L (137-145) 05/30/20 06:30 Potassium 4.0 mmol/L (3.6-5.0) 05/30/20 06:30 Chloride 104.7 mmol/L (98-107) 05/30/20 06:30 Carbon Dioxide 31 mmol/L (22-30) H 05/30/20 06:30 Anion Gap 11 mmol/L 05/30/20 06:30 BUN 14 mg/dL (7-17) 05/30/20 06:30 Creatinine 0.7 mg/dL (0.6-1.2) 05/30/20 06:30 Estimated GFR > 60 ml/min 05/30/20 06:30 BUN/Creatinine Ratio 20 % 05/30/20 06:30 Glucose 110 mg/dL (65-100) H 05/30/20 06:30 Hemoglobin A1c 5.5 % (4-6) 05/27/20 03:45 Lactic Acid 1.00 mmol/L (0.7-2.0) 05/27/20 07:55 Calcium 7.9 mg/dL (8.4-10.2) L 05/30/20 06:30 Ferritin 829.7 ng/mL (10.0-200.0) H 05/31/20 13:50 Total Bilirubin 0.30 mg/dL (0.1-1.2) 05/30/20 06:30 AST 22 units/L (5-40) 05/30/20 06:30 ALT 17 units/L (7-56) 05/30/20 06:30 Alkaline Phosphatase 54 units/L (35-129) 05/30/20 06:30 Lactate Dehydrogenase 416 units/L (91-180) H 05/31/20 13:50 Troponin T < 0.010 ng/mL (0.00-0.029) 05/26/20 14:13 C-Reactive Protein 4.00 mg/dL (0.00-1.30) H 05/31/20 13:50 NT-Pro-B Natriuret Pep 53.54 pg/mL (0-900) 05/26/20 14:13 Total Protein 6.1 g/dL (6.3-8.2) L 05/30/20 06:30 Albumin 3.5 g/dL (3.9-5) L 05/30/20 06:30 Albumin/Globulin Ratio 1.3 % 05/30/20 06:30 Procalcitonin 0.45 ng/mL (<0.15) 05/28/20 16:41 Urine Color Yellow (Yellow) 05/28/20 14:25 Urine Turbidity Clear (Clear) 05/28/20 14:25 Urine pH 6.0 (5.0-7.0) 05/28/20 14:25 Ur Specific [place] 1.016 (1.003-1.030) 05/28/20 14:25 Urine Protein <15 mg/dl mg/dL (Negative) 05/28/20 14:25 Urine Glucose (UA) Neg mg/dL (Negative) 05/28/20 14:25 Urine Ketones Neg mg/dL (Negative) 05/28/20 14:25 Urine Blood Neg (Negative) 05/28/20 14:25 Urine Nitrite Neg (Negative) 05/28/20 14:25 Urine Bilirubin Neg (Negative) 05/28/20 14:25 Urine Urobilinogen 4.0 mg/dL (<2.0) 05/28/20 14:25 Ur Leukocyte Esterase Neg (Negative) 05/28/20 14:25 Urine WBC (Auto) 1.0 /HPF (0.0-6.0) 05/28/20 14:25 Urine RBC (Auto) 1.0 /HPF (0.0-6.0) 05/28/20 14:25 U Epithel Cells (Auto) 1.0 /HPF (0-13.0) 05/28/20 14:25 Urine Mucus Few /HPF 05/28/20 14:25 Vancomycin Trough 23.4 ug/mL (5.0-20.0) H 05/29/20 20:36 Coronavirus (PCR) Positive (Negative) A 05/26/20 10:15 Microbiology: Microbiology 05/29/20 15:01 Peripheral/Venous Blood Culture - Preliminary NO GROWTH AFTER 72 HOURS 05/29/20 15:01 Peripheral/Venous Blood Culture - Preliminary NO GROWTH AFTER 72 HOURS Harris/IV: Voiding Method Toilet Active Medications - Current Medications Current Medications: Generic Name Dose Route Start Last Admin Trade Name Freq PRN Reason Stop Dose Admin Acetaminophen 650 mg 05/27/20 00:49 Acetaminophen 325 Mg Tab PO Q4H PRN Pain MILD(1-3)/Fever >100.5/MAHARAJ Albuterol 2.5 mg 05/27/20 15:16 05/27/20 15:49 Albuterol 2.5 Mg/3 Ml Nebu IH 2.5 mg Q4HRT PRN Administration Shortness Of Breath Albuterol 2 puff 05/27/20 19:42 Albuterol 8.5 Gm Mdi Inhalation IH Q6HRT PRN Shortness Of Breath Dexamethasone 8 mg 06/01/20 10:00 06/02/20 09:45 Dexamethasone 4 Mg Tab PO 06/04/20 12:00 8 mg DAILY LA Administration Enoxaparin Sodium 40 mg 05/27/20 22:00 06/01/20 21:32 Enoxaparin 40 Mg/0.4 Ml Inj SUB-Q 40 mg QDAY@2200 LA Administration Protocol Famotidine 20 mg 05/27/20 10:00 06/02/20 09:46 Famotidine 20 Mg Tab PO 20 mg BID LA Administration Guaifenesin 10 ml 06/01/20 08:31 06/02/20 07:52 Guaifenesin Dm 200/20 Mg Oral Liqd 10 Ml PO 10 ml Q4H PRN Administration Cough Hydrochlorothiazide 25 mg 05/27/20 10:00 06/02/20 09:46 Hydrochlorothiazide 25 Mg Tab PO 25 mg QDAY LA Administration Hydroxyzine HCl 25 mg 05/27/20 22:00 06/01/20 21:33 Hydroxyzine Hcl 25 Mg Tab PO 25 mg QHS LA Administration Sodium Chloride 1,000 mls @ 125 mls/hr 05/27/20 05:00 05/29/20 18:29 Nacl 0.9% 1000 Ml IV 125 mls/hr DIRECT LA Administration Lisinopril 20 mg 05/27/20 10:00 06/02/20 09:49 Lisinopril 20 Mg Tab PO 20 mg QDAY LA Administration Metoclopramide HCl 10 mg 05/27/20 00:49 Metoclopramide 10 Mg/2 Ml Inj IV Q6H PRN Nausea And Vomiting Morphine Sulfate 2 mg 05/27/20 00:49 06/02/20 07:57 Morphine 2 Mg/1 Ml Inj IV 2 mg Q4H PRN Administration Pain, Moderate (4-6) Ondansetron HCl 4 mg 05/27/20 00:49 05/27/20 15:32 Ondansetron 4 Mg/2 Ml Inj IV 4 mg Q8H PRN Administration Nausea And Vomiting Oxycodone/Acetaminophen 1 tab 05/27/20 00:49 06/02/20 03:50 Oxycodone /Acetaminophen 5-325mg Tab PO 1 tab Q6H PRN Administration Pain, Moderate (4-6) Sodium Chloride 10 ml 05/27/20 10:00 06/02/20 09:46 Sodium Chloride 0.9% 10 Ml Flush Syringe IV 10 ml BID LA Administration Sodium Chloride 10 ml 05/27/20 00:49 Sodium Chloride 0.9% 10 Ml Flush Syringe IV PRN PRN LINE FLUSH Nutrition/Malnutrition Assess - Dietary Evaluation Nutrition/Malnutrition Findings: Nutrition Notes Start: 06/02/20 09:10 Freq: Status: Active Protocol: Document 06/02/20 09:10 CAROLYNN (Rec: 06/02/20 09:11 CAROLYNN [id number]) Nutrition Notes Need for Assessment generated from: LOS Initial or Follow up Brief Note Current Diagnosis Sepsis,Respiratory Failure Other Pertinent Diagnosis COVID-19, pneu Current Diet Cardiac Subjective/Other Information Screen for LOS. Per chart, pt ate 100% of meals yesterday. Nutrition Intervention Revisit per MD consult or patient Sign Off request:
--- NOTE | 2020-06-02 12:31 | Progress Note ---
Assessment and Plan Cultures: Blood culture 05/26/2020 growing gram variable rods 1 out of 4. 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 Procalcitonin 0.2--> 0.4. Urinalysis negative. #Severe COVID pneumonia: Chest x-ray with bibasilar opacities. CT chest shows no PE, patchy groundglass opacities. Elevated markers. D-dimer 319. CRP 17. LDH 502. Ferritin 709. Markers uptrending. #Gram variable rods: 1 out of 4. likely contaminant, repeat blood cultures no growth #Acute hypoxemic respiratory failure: sats dropped to 89%, stable on 2 L #Morbid obesity: associated with worse outcomes Recommendations: -Continue Dexamethasone IV/PO daily for 10 days -Completed remdesivir -Monitor inflammatory markers - ferritin, Ddimer, CRP, LDH -Continue anticoagulation per System Protocol -Prone positioning as possible Maria Elena Morrell MD [facility] O: [phone] F: [phone] Subjective Date of service: 06/02/20 Principal diagnosis: COVID Interval history: Afebrile, no acute changes. Blood cultures with gram variable rods on 05/26. Currently on 2 L nasal cannula. Objective - Exam Narrative Exam: Physical exam deferred due to PPE conservation strategy. Please refer to primary team's note. - Constitutional Vitals: Vital Signs Temp Pulse Resp BP Pulse Ox 98.5 F 61 18 124/58 94 06/02/20 06:44 06/02/20 09:49 06/02/20 06:44 06/02/20 09:49 06/02/20 10:00 Temperature -Last 24 Hours Temperature 98.5 F Temperature 97.9 F - Labs CBC & Chem 7: 05/28/20 06:45 05/30/20 06:30 Labs: Abnormal lab results 06/02/20 Range/Units 07:53 POC Glucose 119 H (70-105) mg/dL
[2020-06-02] MEDS: ENOXAPARIN 40 MG/0.4 ML INJ SUB-Q SCH (21:40)
[2020-06-02] MEDS: hydrOXYzine HCL 25 MG TAB PO SCH (21:40)
[2020-06-02] MEDS: SODIUM CHLORIDE 0.9% 1000 ML 1,000 ML IV SCH (23:02)
[2020-06-03] MEDS: oxyCODONE /ACETAMINOPHEN 5-325MG TAB PO PRN ×3 (06:40→18:49)
[2020-06-03] MEDS: guaiFENesin DM 200/20 MG ORAL LIQD 10 ML PO PRN ×4 (06:40→21:49)
[2020-06-03] MEDS: SODIUM CHLORIDE 0.9% 1000 ML 1,000 ML IV SCH ×2 (08:45→17:29)
--- NOTE | 2020-06-03 09:19 | Progress Note ---
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 Negative for PE. Patient was started empirically on antibiotics. ID consulted. Started on Decadron. Covid test is pending. Patient was hypoxic initially. -Patient is on 4 L of oxygen. 05/28/2020 -Acute hypoxic respiratory failure secondary to Covid infection, patient is on 5 L of oxygen. History of asthma -CTA showed lateral groundglass opacities -Patient is on IV Decadron and remdesivir -ID consult appreciated 05/29/20 -Acute hypoxic respiratory failure secondary to Covid infection, patient is on 5 L of oxygen. History of asthma -CTA showed lateral groundglass opacities -Patient is on IV Decadron and remdesivir -ID consult appreciated; patient is on ceftriaxone and vancomycin -Lactic acid is still high 05/30/2020 -Continue with remdesivir and Decadron -Changes still on 4 L of oxygen -CTA chest and Doppler ultrasound of the lower extremities was done and negative for DVT. CTA is significant for multifocal pneumonia due to Covid 05/31/2020 -Patient will finish remdesivir today, continue with Decadron for 10 days -On 3L oxygen -ID consult appreciated -No PE or DVT -I ordered PT evaluation today -We will titrate oxygen as tolerated 06/01: Patient remains on 3 liters, awaiting re-evaluation today and a Walk test. Anticipate discharge in a.m. I did give her extensive advice considering the long distance travel high risk for development of VTE's and also need to ensure adequate oxygen. Also due to noted cough overnight, will change cough medicine, ID input noted, will consider Pulmonary consult if cough worse with the change in medication or worsening exertional dyspnea. CTA chest reviewed, mutifocal pneumonia noted. Will check Chest xray today. 06/02: Chest x-ray showed persistence of pneumonia but improved since previous exam. Patient still requiring 3 L nasal cannula oxygen satting at 97%. Continue dexamethasone daily for total of 10 days. Remdesivir has been completed. Continue to monitor inflammatory markers. Encourage prone positioning. Continue anticoagulation per protocol. Anticipate discharge in a.m. Check exercise pulse oximetry. 06/03: Exercise pulse oximetry testing yesterday revealed room air 95 room air walking 87 o2 2liters 97. Case management spoke to [employer] who states the patient's insurance does not cover DME. CM spoke to patient and in length regarding options if O2 is needed at discharge. History Interval history: No new issues overnight. Hospitalist Physical - Constitutional Vitals: Temp Pulse Resp BP Pulse Ox 97.5 F L 87 18 112/79 98 06/03/20 05:15 06/03/20 05:25 06/03/20 06:40 06/03/20 05:25 06/03/20 09:12 General appearance: Present: no acute distress, well-nourished - EENT Eyes: Present: PERRL, EOM intact ENT: hearing intact, clear oral mucosa, dentition normal - Neck Neck: Present: supple, normal ROM - Respiratory Respiratory effort: normal Respiratory: bilateral: CTA - Cardiovascular Rhythm: regular Heart Sounds: Present: S1 & S2. Absent: gallop, rub - Extremities Extremities: no ischemia, No edema, Full ROM - Abdominal General gastrointestinal: soft, non-tender, non-distended, normal bowel sounds - Integumentary Integumentary: Present: clear, warm, dry - Neurologic Neurologic: CNII-XII intact, moves all extremities HEART Score - HEART Score Age: 45-65 Risk factors: 1-2 risk factors Troponin: Troponin T < 0.010 ng/mL (0.00-0.029) 05/26/20 14:13 Troponin: < normal limit - Critical Actions Critical Actions: 0-3 pts:0.9-1.7%risk of adverse cardiac event.Candidate for discharge Results - Labs CBC & Chem 7: 05/28/20 06:45 05/30/20 06:30 Labs: Laboratory Last Values WBC 10.3 K/mm3 (4.5-11.0) 05/28/20 06:45 RBC 4.17 M/mm3 (3.65-5.03) 05/28/20 06:45 Hgb 13.1 gm/dl (10.1-14.3) 05/28/20 06:45 Hct 38.1 % (30.3-42.9) 05/28/20 06:45 MCV 91 fl (79-97) 05/28/20 06:45 MCH 31 pg (28-32) 05/28/20 06:45 MCHC 34 % (30-34) 05/28/20 06:45 RDW 13.2 % (13.2-15.2) 05/28/20 06:45 Plt Count 219 K/mm3 (140-440) 05/28/20 06:45 Lymph % (Auto) 4.8 % (13.4-35.0) L 05/28/20 06:45 [place] % (Auto) 7.3 % (0.0-7.3) 05/28/20 06:45 Eos % (Auto) 0.0 % (0.0-4.3) 05/28/20 06:45 Baso % (Auto) 0.1 % (0.0-1.8) 05/28/20 06:45 Lymph # (Auto) 0.5 K/mm3 (1.2-5.4) L 05/28/20 06:45 [place] # (Auto) 0.7 K/mm3 (0.0-0.8) 05/28/20 06:45 Eos # (Auto) 0.0 K/mm3 (0.0-0.4) 05/28/20 06:45 Baso # (Auto) 0.0 K/mm3 (0.0-0.1) 05/28/20 06:45 Seg Neutrophils % 87.8 % (40.0-70.0) H 05/28/20 06:45 Seg Neutrophils # 9.0 K/mm3 (1.8-7.7) H 05/28/20 06:45 D-Dimer 529.49 ng/mlDDU (0-234) H 05/31/20 13:50 Sodium 143 mmol/L (137-145) 05/30/20 06:30 Potassium 4.0 mmol/L (3.6-5.0) 05/30/20 06:30 Chloride 104.7 mmol/L (98-107) 05/30/20 06:30 Carbon Dioxide 31 mmol/L (22-30) H 05/30/20 06:30 Anion Gap 11 mmol/L 05/30/20 06:30 BUN 14 mg/dL (7-17) 05/30/20 06:30 Creatinine 0.7 mg/dL (0.6-1.2) 05/30/20 06:30 Estimated GFR > 60 ml/min 05/30/20 06:30 BUN/Creatinine Ratio 20 % 05/30/20 06:30 Glucose 110 mg/dL (65-100) H 05/30/20 06:30 POC Glucose 119 mg/dL (70-105) H 06/02/20 07:53 Hemoglobin A1c 5.5 % (4-6) 05/27/20 03:45 Lactic Acid 1.00 mmol/L (0.7-2.0) 05/27/20 07:55 Calcium 7.9 mg/dL (8.4-10.2) L 05/30/20 06:30 Ferritin 829.7 ng/mL (10.0-200.0) H 05/31/20 13:50 Total Bilirubin 0.30 mg/dL (0.1-1.2) 05/30/20 06:30 AST 22 units/L (5-40) 05/30/20 06:30 ALT 17 units/L (7-56) 05/30/20 06:30 Alkaline Phosphatase 54 units/L (35-129) 05/30/20 06:30 Lactate Dehydrogenase 416 units/L (91-180) H 05/31/20 13:50 Troponin T < 0.010 ng/mL (0.00-0.029) 05/26/20 14:13 C-Reactive Protein 4.00 mg/dL (0.00-1.30) H 05/31/20 13:50 NT-Pro-B Natriuret Pep 53.54 pg/mL (0-900) 05/26/20 14:13 Total Protein 6.1 g/dL (6.3-8.2) L 05/30/20 06:30 Albumin 3.5 g/dL (3.9-5) L 05/30/20 06:30 Albumin/Globulin Ratio 1.3 % 05/30/20 06:30 Procalcitonin 0.45 ng/mL (<0.15) 05/28/20 16:41 Urine Color Yellow (Yellow) 05/28/20 14:25 Urine Turbidity Clear (Clear) 05/28/20 14:25 Urine pH 6.0 (5.0-7.0) 05/28/20 14:25 Ur Specific [place] 1.016 (1.003-1.030) 05/28/20 14:25 Urine Protein <15 mg/dl mg/dL (Negative) 05/28/20 14:25 Urine Glucose (UA) Neg mg/dL (Negative) 05/28/20 14:25 Urine Ketones Neg mg/dL (Negative) 05/28/20 14:25 Urine Blood Neg (Negative) 05/28/20 14:25 Urine Nitrite Neg (Negative) 05/28/20 14:25 Urine Bilirubin Neg (Negative) 05/28/20 14:25 Urine Urobilinogen 4.0 mg/dL (<2.0) 05/28/20 14:25 Ur Leukocyte Esterase Neg (Negative) 05/28/20 14:25 Urine WBC (Auto) 1.0 /HPF (0.0-6.0) 05/28/20 14:25 Urine RBC (Auto) 1.0 /HPF (0.0-6.0) 05/28/20 14:25 U Epithel Cells (Auto) 1.0 /HPF (0-13.0) 05/28/20 14:25 Urine Mucus Few /HPF 05/28/20 14:25 Vancomycin Trough 23.4 ug/mL (5.0-20.0) H 05/29/20 20:36 Coronavirus (PCR) Positive (Negative) A 05/26/20 10:15 Microbiology: Microbiology 05/29/20 15:01 Peripheral/Venous Blood Culture - Preliminary NO GROWTH AFTER 4 DAYS 05/29/20 15:01 Peripheral/Venous Blood Culture - Preliminary NO GROWTH AFTER 4 DAYS Harris/IV: Voiding Method Toilet Active Medications - Current Medications Current Medications: Generic Name Dose Route Start Last Admin Trade Name Freq PRN Reason Stop Dose Admin Acetaminophen 650 mg 05/27/20 00:49 Acetaminophen 325 Mg Tab PO Q4H PRN Pain MILD(1-3)/Fever >100.5/MAHARAJ Albuterol 2.5 mg 05/27/20 15:16 05/27/20 15:49 Albuterol 2.5 Mg/3 Ml Nebu IH 2.5 mg Q4HRT PRN Administration Shortness Of Breath Albuterol 2 puff 05/27/20 19:42 Albuterol 8.5 Gm Mdi Inhalation IH Q6HRT PRN Shortness Of Breath Dexamethasone 8 mg 06/01/20 10:00 06/02/20 09:45 Dexamethasone 4 Mg Tab PO 06/04/20 12:00 8 mg DAILY LA Administration Enoxaparin Sodium 40 mg 05/27/20 22:00 06/02/20 21:40 Enoxaparin 40 Mg/0.4 Ml Inj SUB-Q 40 mg QDAY@2200 LA Administration Protocol Famotidine 20 mg 05/27/20 10:00 06/02/20 21:40 Famotidine 20 Mg Tab PO 20 mg BID LA Administration Guaifenesin 10 ml 06/01/20 08:31 06/03/20 06:40 Guaifenesin Dm 200/20 Mg Oral Liqd 10 Ml PO 10 ml Q4H PRN Administration Cough Hydrochlorothiazide 25 mg 05/27/20 10:00 06/02/20 09:46 Hydrochlorothiazide 25 Mg Tab PO 25 mg QDAY LA Administration Hydroxyzine HCl 25 mg 05/27/20 22:00 06/02/20 21:40 Hydroxyzine Hcl 25 Mg Tab PO 25 mg QHS LA Administration Sodium Chloride 1,000 mls @ 125 mls/hr 05/27/20 05:00 06/02/20 23:02 Nacl 0.9% 1000 Ml IV 125 mls/hr DIRECT LA Administration Lisinopril 20 mg 05/27/20 10:00 06/02/20 09:49 Lisinopril 20 Mg Tab PO 20 mg QDAY LA Administration Metoclopramide HCl 10 mg 05/27/20 00:49 Metoclopramide 10 Mg/2 Ml Inj IV Q6H PRN Nausea And Vomiting Morphine Sulfate 2 mg 05/27/20 00:49 06/02/20 23:02 Morphine 2 Mg/1 Ml Inj IV 2 mg Q4H PRN Administration Pain, Moderate (4-6) Ondansetron HCl 4 mg 05/27/20 00:49 05/27/20 15:32 Ondansetron 4 Mg/2 Ml Inj IV 4 mg Q8H PRN Administration Nausea And Vomiting Oxycodone/Acetaminophen 1 tab 05/27/20 00:49 06/03/20 06:40 Oxycodone /Acetaminophen 5-325mg Tab PO 1 tab Q6H PRN Administration Pain, Moderate (4-6) Sodium Chloride 10 ml 05/27/20 10:00 06/02/20 21:40 Sodium Chloride 0.9% 10 Ml Flush Syringe IV 10 ml BID LA Administration Sodium Chloride 10 ml 05/27/20 00:49 Sodium Chloride 0.9% 10 Ml Flush Syringe IV PRN PRN LINE FLUSH Nutrition/Malnutrition Assess - Dietary Evaluation Nutrition/Malnutrition Findings: Nutrition Notes Start: 06/02/20 09:10 Freq: Status: Active Protocol: Document 06/02/20 09:10 CAROLYNN (Rec: 06/02/20 09:11 CAROLYNN [id number]) Nutrition Notes Need for Assessment generated from: LOS Initial or Follow up Assessment Current Diagnosis Sepsis,Respiratory Failure Other Pertinent Diagnosis COVID-19, pneu Current Diet Cardiac Labs/Tests Reviewed Pertinent Medications Reviewed Height 5 ft 7 in Weight 143 kg [place] Body Weight (kg) 61.36 BMI 49.4 Weight Status Morbidly Obese Subjective/Other Information Screen for LOS. Pt reports eating bites of meals due to SOB for a few days. Pt unsure of UBW. Pt open to ONS. Pt stated she would like education to lose weight tomorrow. Burn Absent Trauma Absent GI Symptoms None Current % PO Negligible Minimum of two criteria No physical signs of malnutrition #1 Nutrition Diagnosis Inadequate oral intake Etiology COVID-19 As Evidenced by Signs and Symptoms pt eating <25% of meals Is patient on ventilator? No Is Patient Ambulatory and/or Out of Bed Yes REE-([facility]-ambulatory/OOB) [ 2622.919 [id number]] Kcal/Kg value to use for calculation 14 Approximate Energy Requirements Using 2002 kcal/Kg Calculation Used for Recommendations Kcal/kg Additional Notes Protein: 82-102g (0.8-1g/kg AdjBW: 102kg) Fluid: 1 ml/kcal Nutrition Intervention Change Diet Order: Continue Add Supplement/Snack (indicate name/kcal Ensure Enlive BID /protein ) Provides kCal: 1,050 Provides Protein (gm) 60 Goal #1 Meet at least 75% of protein and energy needs via PO and ONS intakes Anticipated Discharge Needs: Cardiac Follow-Up By: 06/04/20 Revisit per MD consult or patient Sign Off request: Additional Comments FU for intakes, ONS tolerance and diet education
[2020-06-03] MEDS: DEXAMETHASONE 4 MG TAB PO SCH (09:28)
[2020-06-03] MEDS: hydroCHLOROthiazide 25 MG TAB PO SCH (09:28)
[2020-06-03] MEDS: LISINOPRIL 20 MG TAB PO SCH (09:28)
[2020-06-03] MEDS: FAMOTIDINE 20 MG TAB PO SCH ×2 (09:28→21:49)
[2020-06-03] MEDS: ACETAMINOPHEN 325 MG TAB PO PRN ×2 (16:40→23:39)
--- NOTE | 2020-06-03 16:53 | Progress Note ---
Assessment and Plan Cultures: Blood culture 05/26/2020 growing gram variable rods 1 out of 4. 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 Procalcitonin 0.2--> 0.4. Urinalysis negative. #Severe COVID pneumonia: Chest x-ray with bibasilar opacities. CT chest shows no PE, patchy groundglass opacities. Elevated markers. D-dimer 319. CRP 17. LDH 502. Ferritin 709. Markers uptrending. #Gram variable rods: 1 out of 4. likely contaminant, repeat blood cultures no growth #Acute hypoxemic respiratory failure: sats dropped to 89%, stable on 2 L #Morbid obesity: associated with worse outcomes Recommendations: -Continue Dexamethasone IV/PO daily for 10 days -Completed remdesivir -Monitor inflammatory markers - ferritin, Ddimer, CRP, LDH -Continue anticoagulation per System Protocol -Prone positioning as possible Maria Elena Morrell MD [facility] O: [phone] F: [phone] Subjective Date of service: 06/03/20 Principal diagnosis: COVID Interval history: Afebrile, no acute change. 2 L nasal cannula. Objective - Exam Narrative Exam: Physical exam deferred due to PPE conservation strategy. Please refer to primary team's note. - Constitutional Vitals: Vital Signs Temp Pulse Resp BP Pulse Ox 97.6 F 53 L 18 131/66 97 06/03/20 12:14 06/03/20 12:14 06/03/20 12:14 06/03/20 12:14 06/03/20 12:14 Temperature -Last 24 Hours Temperature 97.6 F Temperature 97.5 F Temperature 97.2 F - Labs CBC & Chem 7: 05/28/20 06:45 05/30/20 06:30
[2020-06-03] MEDS: ENOXAPARIN 40 MG/0.4 ML INJ SUB-Q SCH (21:48)
[2020-06-03] MEDS: hydrOXYzine HCL 25 MG TAB PO SCH (21:48)
[2020-06-04] MEDS: SODIUM CHLORIDE 0.9% 1000 ML 1,000 ML IV SCH ×3 (01:45→21:57)
[2020-06-04] MEDS: guaiFENesin DM 200/20 MG ORAL LIQD 10 ML PO PRN ×3 (06:04→21:49)
--- NOTE | 2020-06-04 07:48 | Progress Note ---
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 Negative for PE. Patient was started empirically on antibiotics. ID consulted. Started on Decadron. Covid test is pending. Patient was hypoxic initially. -Patient is on 4 L of oxygen. 05/28/2020 -Acute hypoxic respiratory failure secondary to Covid infection, patient is on 5 L of oxygen. History of asthma -CTA showed lateral groundglass opacities -Patient is on IV Decadron and remdesivir -ID consult appreciated 05/29/20 -Acute hypoxic respiratory failure secondary to Covid infection, patient is on 5 L of oxygen. History of asthma -CTA showed lateral groundglass opacities -Patient is on IV Decadron and remdesivir -ID consult appreciated; patient is on ceftriaxone and vancomycin -Lactic acid is still high 05/30/2020 -Continue with remdesivir and Decadron -Changes still on 4 L of oxygen -CTA chest and Doppler ultrasound of the lower extremities was done and negative for DVT. CTA is significant for multifocal pneumonia due to Covid 05/31/2020 -Patient will finish remdesivir today, continue with Decadron for 10 days -On 3L oxygen -ID consult appreciated -No PE or DVT -I ordered PT evaluation today -We will titrate oxygen as tolerated 06/01: Patient remains on 3 liters, awaiting re-evaluation today and a Walk test. Anticipate discharge in a.m. I did give her extensive advice considering the long distance travel high risk for development of VTE's and also need to ensure adequate oxygen. Also due to noted cough overnight, will change cough medicine, ID input noted, will consider Pulmonary consult if cough worse with the change in medication or worsening exertional dyspnea. CTA chest reviewed, mutifocal pneumonia noted. Will check Chest xray today. 06/04. Patient able to wean down to 2 L. Pending evaluation of walk test today. Patient stable for discharge with walk test. Also told the patient not cleared for long distance travel. 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 On 2 L of oxygen. Tolerating well able to get up and move around. Without hypoxemia. Await walk test from nurse. Severe sepsis Severe Covid pneumonia Acute hypoxemic respiratory failure Morbid obesity Objective - Constitutional Vitals: Vital Signs - 12hr 06/03/20 06/03/20 06/03/20 20:47 21:58 22:00 Temperature 97.8 F Pulse Rate 58 L Respiratory 18 Rate Blood Pressure 100/38 Blood Pressure 104/55 [Right] O2 Sat by Pulse 95 96 Oximetry 06/03/20 06/04/20 23:39 04:14 Temperature 97.1 F L Pulse Rate 49 L Respiratory 18 18 Rate Blood Pressure 130/61 Blood Pressure [Right] O2 Sat by Pulse 96 Oximetry General appearance: Present: no acute distress, well-nourished - EENT Eyes: PERRL, EOM intact ENT: hearing intact, clear oral mucosa Ears: bilateral: normal - Neck Neck: supple, normal ROM - Respiratory Respiratory effort: normal Respiratory: bilateral: CTA - Breasts Breasts: normal - Cardiovascular Rhythm: regular Heart Sounds: Present: S1 & S2. Absent: gallop, rub Extremities: pulses intact, No edema, normal color, Full ROM - Gastrointestinal General gastrointestinal: Present: soft, non-tender, non-distended, normal bowel sounds - Genitourinary Female genitourinary: normal - Integumentary Integumentary: clear, warm, dry - Musculoskeletal Musculoskeletal: 1, strength equal bilaterally - Neurologic Neurologic: moves all extremities - Psychiatric Psychiatric: memory intact, appropriate mood/affect, intact judgment & insight - Labs CBC & Chem 7: 05/28/20 06:45 05/30/20 06:30 HEART Score - HEART Score Age: 45-65 Risk factors: 1-2 risk factors Troponin: Troponin T < 0.010 ng/mL (0.00-0.029) 05/26/20 14:13 Troponin: < normal limit - Critical Actions Critical Actions: 0-3 pts:0.9-1.7%risk of adverse cardiac event.Candidate for discharge
[2020-06-04] MEDS: hydroCHLOROthiazide 25 MG TAB PO SCH (11:10)
[2020-06-04] MEDS: FAMOTIDINE 20 MG TAB PO SCH ×2 (11:11→21:49)
[2020-06-04] MEDS: DEXAMETHASONE 4 MG TAB PO SCH (11:11)
[2020-06-04] MEDS: LISINOPRIL 20 MG TAB PO SCH (11:11)
--- NOTE | 2020-06-04 15:15 | Progress Note ---
Assessment and Plan Cultures: Blood culture 05/26/2020 growing gram variable rods 1 out of 4. 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 Procalcitonin 0.2--> 0.4. Urinalysis negative. #Severe COVID pneumonia: Chest x-ray with bibasilar opacities. CT chest shows no PE, patchy groundglass opacities. Elevated markers. D-dimer 319. CRP 17. LDH 502. Ferritin 709. Markers uptrending. #Gram variable rods: 1 out of 4. likely contaminant, repeat blood cultures no growth #Acute hypoxemic respiratory failure: sats dropped to 89%, stable on 2 L #Morbid obesity: associated with worse outcomes Recommendations: -Continue Dexamethasone IV/PO daily for 10 days -Completed remdesivir -Monitor inflammatory markers - ferritin, Ddimer, CRP, LDH -Continue anticoagulation per System Protocol -Prone positioning as possible ID will sign off please call if questions. Maria Elena Morrell MD [facility] O: [phone] F: [phone] Subjective Date of service: 06/04/20 Principal diagnosis: COVID Interval history: Afebrile, no acute change. Currently on 2 L nasal cannula. Objective - Exam Narrative Exam: Physical exam deferred due to PPE conservation strategy. Please refer to primary team's note. - Constitutional Vitals: Vital Signs Temp Pulse Resp BP Pulse Ox 97.4 F L 60 18 109/46 93 06/04/20 11:26 06/04/20 11:26 06/04/20 11:26 06/04/20 11:26 06/04/20 11:26 Temperature -Last 24 Hours Temperature 97.4 F Temperature 97.1 F Temperature 97.8 F - Labs CBC & Chem 7: 05/28/20 06:45 05/30/20 06:30
[2020-06-04] MEDS: ALBUTEROL 2.5 MG/3 ML NEBU IH PRN (21:12)
[2020-06-04] MEDS: hydrOXYzine HCL 25 MG TAB PO SCH (21:49)
[2020-06-04] MEDS: ENOXAPARIN 40 MG/0.4 ML INJ SUB-Q SCH (21:49)
[2020-06-05] MEDS: SODIUM CHLORIDE 0.9% 1000 ML 1,000 ML IV SCH (05:29)
--- NOTE | 2020-06-05 08:56 | Discharge Summary ---
Providers - Providers Date of Admission: 05/26/20 15:54 Date of discharge: 06/05/20 Attending physician: CHRISTOS BERMUDEZ 05/26/20 15:14 Consult to Physician [CONS] Urgent Comment: Consulting Provider: TOY SALCEDO Physician Instructions: Reason For Exam: covid suspected 05/31/20 08:27 Physical Therapy Evaluation and Treat [CONS] Routine Comment: Reason For Exam: Evaluate and treat Primary care physician: COMPRESSOR REPAIRER Hospitalization Condition: Serious Hospital course: 65 years old female with history of asthma, recurrent pneumonia, seasonal allergies, hypertension, morbid obesity, visiting from [facility], 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 The patient was admitted with diagnosis of severe Covid pneumonia, severe sepsis, acute hypoxemic respiratory failure and morbid obesity. Chest x-ray revealed bibasilar opacities. CT chest revealed no PE but did reveal patchy groundglass opacities. Patient was noted to have inflammatory markers that were elevated and trending upward. Patient was treated with dexamethasone IV and remdesivir with improvement inflammatory markers and overall clinically. Exercise pulse oximetry walk test revealed room air resting pulse oximetry 96%, during exercise 92%. Therefore the patient does not need home oxygen. Patient is felt to receive maximal hospital benefit and thus will be discharged home. Dedicated discharge time 35 minutes. Disposition: DC-01 TO HOME OR SELFCARE Final Discharge Diagnosis (Prints w/discharge instructions): Acute hypoxic respiratory failure, COVID-19 pneumonia, morbid obesity Core Measure Documentation - Palliative Care Palliative Care/ Comfort Measures: Not Applicable - Core Measures Any of the following diagnoses?: none Exam - Constitutional Vitals: Temp Pulse Resp BP Pulse Ox 97.6 F 47 L 20 105/38 97 06/05/20 06:35 06/05/20 06:35 06/05/20 06:35 06/05/20 06:35 06/05/20 06:35 General appearance: Present: no acute distress, well-nourished - EENT Eyes: Present: PERRL ENT: hearing intact, clear oral mucosa - Neck Neck: Present: supple, normal ROM - Respiratory Respiratory effort: normal Respiratory: bilateral: CTA - Cardiovascular Heart Sounds: Present: S1 & S2. Absent: rub, click - Extremities Extremities: pulses symmetrical, No edema Peripheral Pulses: within normal limits - Abdominal General gastrointestinal: Present: soft, non-tender, non-distended, normal bowel sounds Female genitourinary: Present: normal - Integumentary Integumentary: Present: clear, warm, dry - Musculoskeletal Musculoskeletal: gait normal, strength equal bilaterally - Psychiatric Psychiatric: appropriate mood/affect, intact judgment & insight - Neurologic Neurologic: CNII-XII intact, moves all extremities Plan Activity: advance as tolerated Weight Bearing Status: Weight Bear as Tolerated Diet: regular Follow up with: PRIMARY CARE, [Primary Care Provider] - 3-5 Days Prescriptions: Lisinopril/Hydrochlorothiazide [Zestoretic 20-25 mg] 1 tab PO QDAY #30
[2020-06-05] MEDS: hydroCHLOROthiazide 25 MG TAB PO SCH (09:07)
[2020-06-05] MEDS: FAMOTIDINE 20 MG TAB PO SCH (09:07)
[2020-06-05] MEDS: LISINOPRIL 20 MG TAB PO SCH (09:08)
[2020-06-05 09:24] VITALS: BP 112/54
[2020-06-05] MEDS: guaiFENesin DM 200/20 MG ORAL LIQD 10 ML PO PRN (10:18)
== END 2020-06-05 11:26 | disposition home or self-care (01) | DRG 871 ==
LOC: ED 13:14 → OBSVTOIN 15:54 → 3A 15:54
PROVIDERS: ADMIT Internal Medicine; ATTEND Hospitalist
PROC: XW033E5 Introduction of Remdesivir Anti-infective into Peripheral Vein, Percutaneous Approach, New Technology Group 5 (ICD-10-PCS; principal; 2020-05-27)
DX: A41.9 Sepsis, unspecified organism (principal); J96.21 Acute and chronic respiratory failure with hypoxia; U07.1 COVID-19; J12.82 Pneumonia due to coronavirus disease 2019; Z68.42 Body mass index [BMI] 45.0-49.9, adult; E66.01 Morbid (severe) obesity due to excess calories; J45.909 Unspecified asthma, uncomplicated; I10 Essential (primary) hypertension; I44.4 Left anterior fascicular block; Z82.49 Family history of ischemic heart disease and other diseases of the circulatory system; Z79.899 Other long term (current) drug therapy; Z79.891 Long term (current) use of opiate analgesic; Z79.01 Long term (current) use of anticoagulants; Z88.0 Allergy status to penicillin; Z88.8 Allergy status to other drugs, medicaments and biological substances; Z91.013 Allergy to seafood
CPT/HCPCS: 36415; 71045; 71046; 71275; 80053; 80202; 81001; 82140; 82728; 82947; 82962; 83036; 83615; 83880; 84145; 84484; 85025; 85379; 86140; 87040; 93005; 93970; 94640; 96372; 96374; 96375; 96376; G0378; J0456; J0696; J1100; J1650; J1956; J2270; J2405; J3370; J7030; J7040; J7050; J7120; J8540; Q9967; U0003